=== PATIENT | male | born 1955 ===

== ENCOUNTER 2017-09-18 11:52 | Emergency (ER) | payer MEDICARE ==
[2017-09-18 11:52] VITALS: BMI 34.9
[2017-09-18 12:01] VITALS: TEMP 99.1
--- NOTE | 2017-09-18 13:13 | RAD ---
Left knee three views History: Injury. Comparison: None available. Findings: Mild narrowing of the medial compartment of the femorotibial joint space. No significant suprapatellar joint effusion. No evidence for acute displaced fracture or dislocation. Small ossific density seen posterior to the proximal tibia on the lateral view may represent a small loose osteochondral body. Impression: Mild narrowing of the medial compartment of the femorotibial joint space. No significant suprapatellar joint effusion. No evidence for acute displaced fracture or dislocation. Small ossific density seen posterior to the proximal tibia on the lateral view may represent a small loose osteochondral body.
[2017-09-18 13:30] VITALS: BP 136/83; PULSE 77; RESP 19; O2SAT 95
--- NOTE | 2017-09-18 15:55 | C.PDOC ---
History Of Present Illness 62 year old male, with PMHx of CVA with left sided weakness, presents to ED for evaluation of left knee pain s/p injury today. Pt states he was walking without assistance, lost his balance, and fell on his left knee. Fall was witnessed by family. Family states patient's mentation is at baseline, notes speech has not changed acutely. Denies LOC, headache, or any other complaints at this time. Chief Complaint (Nursing): Lower Extremity Problem/Injury History Per: Patient History/Exam Limitations: no limitations Onset/Duration Of Symptoms: Hrs Current Symptoms Are (Timing): Still Present Recent travel outside of the [place]: No Additional History Per: Family - Knee Description Of Injury: Fell Past Medical History Reviewed: Historical Data, Nursing Documentation, Vital Signs Vital Signs: Last Vital Signs Temp 99.1 F 09/18/17 11:55 Pulse 77 09/18/17 13:30 Resp 19 09/18/17 13:30 BP 136/83 09/18/17 13:30 Pulse Ox 95 09/18/17 16:02 - Medical History PMH: Depression, Hypercholesterolemia, Hypothyroidism, Sleep Apnea (Uses C-PAP HS) Denies: HIV, Chronic Kidney Disease - [facility] Procedures APHASIA TREATMENT USING AUGMENT COMM EQUIPMENT (07/16/15) EXERCISE TREATMENT OF MUSCULOSK WHOLE USING ASSIST EQUIPMENT (07/16/15) GAIT TRAINING/AMBULAT TREATMENT USING ASSIST EQUIPMENT (07/16/15) HOME MANAGEMENT TREATMENT USING ASSIST EQUIPMENT (07/16/15) SPINAL TAP (05/07/98) Family History: States: Unknown Family Hx - Social History Hx Alcohol Use: No Hx Substance Use: No - Immunization History Hx Tetanus Toxoid Vaccination: Yes Hx Influenza Vaccination: Yes Hx Pneumococcal Vaccination: Yes Review Of Systems Except As Marked, All Systems Reviewed And Found Negative. Constitutional: Negative for: Fever, Chills Cardiovascular: Negative for: Chest Pain, Palpitations Respiratory: Negative for: Shortness of Breath Musculoskeletal: Positive for: Leg Pain (left knee) Neurological: Negative for: Headache, Dizziness Physical Exam - Physical Exam Appears: Non-toxic, No Acute Distress Skin: Warm, Dry, Other (left knee abrasion) Head: Atraumatic, Normacephalic Eye(s): bilateral: Normal Inspection Oral Mucosa: Moist Cardiovascular: Rhythm Regular Respiratory: Normal Breath Sounds, No Rales, No Rhonchi, No Wheezing Gastrointestinal/Abdominal: Soft, No Tenderness Extremity: Normal ROM (FROM of left knee), No Tenderness, Capillary Refill ( less than 2 seconds), No Deformity, No Swelling Neurological/Psych: Oriented x3, No Normal Speech (slurred) ED Course And Treatment O2 Sat by Pulse Oximetry: 95 (RA) Pulse Ox Interpretation: Normal Medical Decision Making Medical Decision Making: Left knee x-ray ordered and reviewed. Pt is being discharged home with instructions to follow up with PMD in 1-3 days. Disposition - Disposition Referrals: Arcadio Monreal, [Non-Staff] - Disposition: HOME/ ROUTINE Disposition Time: 13:10 Condition: GOOD Additional Instructions: Thank you for letting us take care of you today. The emergency medical care you received today was directed at your acute symptoms. If you were prescribed any medication, please fill it and take as directed. It may take several days for your symptoms to resolve. Return to the Emergency Department if your symptoms worsen, do not improve, or if you have any other problems. Please contact your doctor or call one of the physicians/clinics you have been referred to that are listed on the Patient Visit Information form that is included in your discharge packet. Bring any paperwork you were given at discharge with you along with any medications you are taking to your follow up visit. Our treatment cannot replace ongoing medical care by a primary care provider (PCP) outside of the emergency department. Thank you for allowing the [facility] team to be part of your care today. Follow up with your primary care doctor in 2-3 days for re-evaluation and further management. Instructions: Contusion (DC) Forms: [employer] Round ([place]) - Clinical Impression Clinical Impression: Knee contusion - Scribe Statement The provider has reviewed the documentation as recorded by the Scribe Mavis Arndt All medical record entries made by the Scribe were at my direction and personally dictated by me. I have reviewed the chart and agree that the record accurately reflects my personal performance of the history, physical exam, medical decision making, and the department course for this patient. I have also personally directed, reviewed, and agree with the discharge instructions and disposition.
== END 2017-09-18 13:39 | disposition home or self-care (01) ==
LOC: C.ER 11:52
DX: S80.02XA Contusion of left knee, initial encounter (principal); X58.XXXA Exposure to other specified factors, initial encounter; Y93.01 Activity, walking, marching and hiking; E03.9 Hypothyroidism, unspecified; E78.00 Pure hypercholesterolemia, unspecified

== ENCOUNTER 2017-11-02 13:17 | Inpatient (IN) | payer MEDICARE ==
[2017-11-02 13:17] VITALS: BMI 34.9
[2017-11-02 13:52] LABS: EOS % 0.5 % (0.0-4.0); HEMOGLOBIN 14.1 g/dL (12.0-18.0); LYMPH # 1.1 K/uL (1.0-4.3); MONO # 0.3 K/uL (0.0-0.8); NEUT # 3.4 K/uL (1.8-7.0); WHITE BLOOD COUNT 4.9 K/uL (4.8-10.8)
--- NOTE | 2017-11-02 13:54 | CT ---
Date of service: 11/02/2017 PROCEDURE: CT HEAD WITHOUT CONTRAST. HISTORY: Code Stroke COMPARISON: 05/17/2016 TECHNIQUE: Axial computed tomography images were obtained through the head/brain without intravenous contrast. Radiation dose: Total exam DLP = 949.00 mGy-cm. This CT exam was performed using one or more of the following dose reduction techniques: Automated exposure control, adjustment of the mA and/or kV according to patient size, and/or use of iterative reconstruction technique. FINDINGS: HEMORRHAGE: No intracranial hemorrhage. BRAIN: No mass effect or edema. No evidence of acute infarct. Old left basal ganglia lacunar infarct. Several old small left thalamic lacunar infarcts are noted. There is severe chronic periventricular and deep/ subcortical white matter lucency consistent with microvascular ischemic change. Please note that there is CSF attenuation within the sella turcica consistent with "Empty sella" syndrome. The pituitary is presumed flattened along the floor of the sella turcica. VENTRICLES: Unremarkable. No hydrocephalus. CALVARIUM: Unremarkable. PARANASAL SINUSES: Unremarkable as visualized. No significant inflammatory changes. MASTOID AIR CELLS: Unremarkable as visualized. No inflammatory changes. OTHER FINDINGS: None. IMPRESSION: No intracranial hemorrhage or evidence of acute infarct. Severe chronic white matter ischemic change. Old basal ganglia/thalamic lacunar infarcts. The findings this examination were communicated by telephone to Dr. Schmidt at 1:50 p.m. on 11/02/2017.
[2017-11-02 13:57] LABS: BASO % 0.4 % (0.0-2.0); LYMPH % 22.2 % (20.0-40.0); MEAN CELL VOLUME 92.4 fL (80.0-94.0); MEAN CORPUSCULAR HEMOGLOBIN 31.8 pg (27.0-31.0); MEAN CORPUSCULAR HGB CONC 34.4 g/dL (33.0-37.0); MEAN PLATELET VOLUME 10.1 fL (7.2-11.7); NEUT % 69.9 % (50.0-75.0); NRBC % 0.1 % (0.0-2.0); RBC 4.45 Mil/uL (4.40-5.90); RED CELL DISTRIBUTION WIDTH 13.8 % (11.5-14.5)
--- NOTE | 2017-11-02 13:59 | C.PDOC ---
History Of Present Illness 62yo male, brought to ER as a code stroke. 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 Per patient's family, he was at baseline when he went to sleep last night and patient states he slept through the night, which is unusual for him as he usually wakes up to use the bathroom. This morning, the family noted the patient had worse than usual slurred speech and worsened left sided weakness; patient was unable to ambulate without assistance. Currently, patient denies any headache, chest pain, shortness of breath, and offers no medical complaints. Due to his prior CVA which was hemorrhagic he has not been on an anticoagulant medications and is given ASA intermittently. PMD: Dr. SANDEEP Griffith Time Seen by Provider: 11/02/17 13:28 Chief Complaint (Nursing): Weakness/Neurological Deficit History Per: Patient, Family History/Exam Limitations: no limitations Fall Associated With With Symptoms: No - Symptoms Of CVA Associated Symptoms: Impaired Speech, Decreased Ability To Walk Character Of Deficits: Left: Weakness Past Medical History Reviewed: Historical Data, Nursing Documentation, Vital Signs Vital Signs: Last Vital Signs Temp 98.5 F 11/02/17 13:27 Pulse 83 11/02/17 14:12 Resp 17 11/02/17 14:12 BP 116/70 11/02/17 14:12 Pulse Ox 98 11/02/17 15:26 - Medical History PMH: Depression, Hypercholesterolemia, Hypothyroidism, Sleep Apnea (Uses C-PAP HS) Denies: HIV, Chronic Kidney Disease Other PMH: CADASIL syndrome - [facility] Procedures APHASIA TREATMENT USING AUGMENT COMM EQUIPMENT (07/16/15) EXERCISE TREATMENT OF MUSCULOSK WHOLE USING ASSIST EQUIPMENT (07/16/15) GAIT TRAINING/AMBULAT TREATMENT USING ASSIST EQUIPMENT (07/16/15) HOME MANAGEMENT TREATMENT USING ASSIST EQUIPMENT (07/16/15) SPINAL TAP (05/07/98) Family History: States: Unknown Family Hx - Social History Hx Alcohol Use: No Hx Substance Use: No - Immunization History Hx Tetanus Toxoid Vaccination: Yes Hx Influenza Vaccination: Yes Hx Pneumococcal Vaccination: Yes Review Of Systems Except As Marked, All Systems Reviewed And Found Negative. Constitutional: Negative for: Fever, Chills Cardiovascular: Negative for: Chest Pain Respiratory: Negative for: Shortness of Breath Gastrointestinal: Negative for: Abdominal Pain Neurological: Positive for: Weakness (left sided). Negative for: Headache, Dizziness Physical Exam - Physical Exam Appears: Non-toxic Skin: Warm, Dry Head: Atraumatic, Normacephalic Eye(s): bilateral: PERRL, Other (disconjugate gaze; lateral gaze normal.) Neck: Normal ROM, Supple, Other (no carotid bruit noted) Chest: Symmetrical Cardiovascular: Rhythm Regular, No Murmur Respiratory: Normal Breath Sounds, No Rales, No Rhonchi, No Wheezing Gastrointestinal/Abdominal: Normal Exam, Soft, No Tenderness Back: Normal Inspection, No CVA Tenderness, No Vertebral Tenderness, No Paraspinal Tenderness Extremity: No Tenderness, No Pedal Edema, No Calf Tenderness, Capillary Refill ( < 2 seconds ), No Deformity, No Swelling Extremity: Left: Other (left limb ataxia) Pulses: Left Dorsalis Pedis: Normal, Right Dorsalis Pedis: Normal Neurological/Psych: Oriented x3, No Normal Speech (+ slurred speech due to prior CVA), Normal Cognition, Normal Sensation ED Course And Treatment - Laboratory Results Result Diagrams: 11/02/17 13:47 11/02/17 13:47 Lab Interpretation: No Acute Changes ECG: Interpreted By Ma ECG Rhythm: Sinus Rhythm, Nonspecific Changes ECG Interpretation: No Acute Changes O2 Sat by Pulse Oximetry: 98 (RA) Pulse Ox Interpretation: Normal - Radiology CXR: Interpreted by Ma CXR Interpretation: Yes: No Acute Disease - CT Scan/US Head Other Rad Studies (CT/US): Read By Radiologist CT/US Interpretation: No evidence of acute infarct or hemorrhage. Progress Note: CODE STROKE called at 1324. Labs, EKG, CT Head w/o contrast ordered. IV Fluids ordered - Physician Consult Information Outcome Of Conversation: Case discussed with Dr Griffith. He requests patient be admitted to the hospitalist. Dr Wooten notified. Case reviewed with Dr Bunn. He does not believe patient should be a candidate for TPA at this time. NIHSS Stroke Scale 2 - Date/Time Evaluation Performed Date Performed: 11/02/17 Time Performed: 13:30 When Was NIHSS Performed: Code Stroke - How Severe is the Stroke Level of Consciousness: 0=Alert LOC to Questions: 0=Both comments correct LOC to commands: 0=Obeys both correctly Best Gaze: 0=Normal Visual: 0=No visual loss Facial: 0=Normal Motor Arm - Left: 0=No drift Motor Arm - Right: 0=No drift Motor Leg - Left: 0=No drift Motor Leg - Right: 0=No drift Limb Ataxia: 1=Present Upper or Lower Sensory: 0=Normal Best Language: 0=No aphasia Dysarthia: 1=Mild to moderate slurring Extinction & Inattention (Neglect): 0=Normal, no object Score: 2 rTPA Inclusion/Exclusion - Refusal of Treatment Patient Refused Treatment: No - Inclusion Criteria for Altepase Patient is 18 years or Older: Yes The Clinical Diagnosis of Ischemic Stroke That is Causing a Potentially Disabling Neurological Deficit: No - Exclusion Criteria for Altepase Uncontrolled Hypertension at Time of Treatment (Systolic BP above 185 or Diastolic BP above 110 mmHg): No History of: Intracranial hemorrhage Active Internal Bleeding: No Known Bleeding Diathesis Including but Not Limited to: Platelets Below 100,000/ mm,PTT Above 40 sec After Heparin Use, Current Use of Oral Anitcoagulant With INR Greater Than 1.7 or PT Greater Than 15 secs: No Evidence of an Intracranial Hemorrhage: No Evidence of Major Acute Infarct With Signs Greater Than 1/3 MCA Territory: No Disposition - Disposition Disposition: HOSPITALIZED Disposition Time: 15:34 Condition: STABLE - POA Present On Arrival: None - Clinical Impression Clinical Impression: CADASIL (cerebral autosomal dominant arteriopathy with subcortical infarcts and leukoencephalopathy), TIA (transient ischemic attack) - Scribe Statement The provider has reviewed the documentation as recorded by the Jaden Quiroga Provider Attestation: All medical record entries made by the Jaden were at my direction and personally dictated by me. I have reviewed the chart and agree that the record accurately reflects my personal performance of the history, physical exam, medical decision making, and the department course for this patient. I have also personally directed, reviewed, and agree with the discharge instructions and disposition.
[2017-11-02 14:00] LABS: INR 1.2; PROTHROMBIN TIME 12.6 SECONDS (9.7-12.2)
[2017-11-02 14:16] LABS: BLOOD UREA NITROGEN 8 mg/dL (9-20); GFR AFRICAN-AMERICAN > 60; GFR NON-AFRICAN AMERICAN > 60
[2017-11-02 14:17] LABS: ALB/GLOB RATIO 1.7 (1.0-2.1); ALBUMIN 4.2 g/dL (3.5-5.0); ALT/SGPT 30 U/L (21-72); AST/SGOT 23 U/L (17-59); HDL CHOLESTEROL 36 mg/dL (30-70)
[2017-11-02] MEDS: Sodium Chloride 0.9% 1,000 ML IV SCH ×2 (14:19→23:45)
[2017-11-02] MEDS ORDERED: Sodium Chloride 0.9% 1,000 ML ONE (14:21)
[2017-11-02 14:28] LABS: LDL CHOLESTEROL 106 mg/dL (0-129)
--- NOTE | 2017-11-02 14:30 | RAD ---
Date of service: 11/02/2017 HISTORY: Code Stroke COMPARISON: Comparison chest dated the 06/21/2016. . FINDINGS: LUNGS: Minor bibasilar atelectasis PLEURA: No significant pleural effusion identified, no pneumothorax apparent. CARDIOVASCULAR: Heart size upper limits of normal OSSEOUS STRUCTURES: No significant abnormalities. VISUALIZED UPPER ABDOMEN: Normal. OTHER FINDINGS: None. IMPRESSION: Minor bibasilar atelectasis
--- NOTE | 2017-11-02 14:53 | CP.PCM.HP ---
<Rob Rosado - Last Filed: 11/02/17 23:25> History of Present Illness - History of Present Illness History of Present Illness: PGY-1 H&P for Dr. Aria Hawthorne CC: "slurred speech and left side weakness" 62 year old male with past medical history of multiple strokes (CADASIL Syndrome ), dyslipidemia, and hypothyroidism, presents with slurred speech and left side weakness. Patient woke up this morning at 7:30 and noticed his own difficulty speaking, and he told his that he thought he was having a stroke. Patient' s reports that patient did not get up in the middle of the night to urinate , as he usually does. She also noticed that he had inversion of his left foot and that he had gait changes. Patient already had some left sided weakness, gait abnormalities, diplopia, and dysarthria prior to this event. Patient admits cough and weakness. He denies chest pain, difficulty breathing, headache , abdominal pain, nausea/vomiting, diarrhea/constipation, dysurea, changes in vision/hearing, bleeding, rash, leg/back pain. PMD: Dr SANDEEP Griffith, Neuro: Dr Bunn ALL: IV contrast PMhx: CADASIL syndrome, multiple episodes of strokes, Hyperlipidemia, hypothyroidism Shx: none Famhx: brother(stroke), mother (emphysema) SochHx: patient smoked 1 pack a day for about 40 years, quitted in 1997. Patient consumed alcohol for approx 40 years, and stopped 7 years ago. Patient denies illicit drug use. 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 Patient lives with and daughter. Meds: Crestor 20mg po HS , Synthroid 75mcg PO daily Review of Systems - Constitutional Constitutional: Fatigue. absent: Daytime Sleepiness, Fever, Headache, Increased Appetite, Night Sweats - EENT Eyes: absent: Change in Vision, Loss of Vision Ears: absent: Decreased Hearing - Cardiovascular Cardiovascular: absent: Chest Pain, Edema, Leg Edema, Lightheadedness - Respiratory Respiratory: Cough. absent: Dyspnea on Exertion, Wheezing - Gastrointestinal Gastrointestinal: absent: Abdominal Pain, Constipation, Diarrhea, Nausea, Vomiting - Genitourinary Genitourinary: absent: Dysuria - Musculoskeletal Musculoskeletal: Muscle Weakness. absent: Back Pain - Integumentary Integumentary: absent: Bleeding Lesions, Swelling - Neurological Neurological: Abnormal Gait, Abnormal Speech, Weakness. absent: Dizziness, Headaches, Loss of Vision - Psychiatric Psychiatric: Confusion. absent: Anxiety - Hematologic/Lymphatic Hematologic: absent: Easy Bleeding Past Patient History - Infectious Disease Hx of Infectious Diseases: None - Past Medical History & Family History Past Medical History?: Yes - Past Social History Smoking Status: Former Smoker Chewing Tobacco Use: No Cigar Use: No Alcohol: None Drugs: Denies Home Situation {Lives}: With Family - CARDIAC Hx Hypercholesterolemia: Yes - PULMONARY Hx Sleep Apnea: Yes (Uses C-PAP HS) - NEUROLOGICAL HX Cerebrovascular Accident: Yes (left sided weakness) Other/Comment: CADASIL SYNDROME - HEENT Hx HEENT Problems: Yes Other/Comment: left eye double vision late 1997 - RENAL Hx Chronic Kidney Disease: No - ENDOCRINE/METABOLIC Hx Hypothyroidism: Yes - HEMATOLOGICAL/ONCOLOGICAL Hx Human Immunodeficiency Virus (HIV): No - INTEGUMENTARY Hx Dermatological Problems: No - MUSCULOSKELETAL/RHEUMATOLOGICAL Hx Musculoskeletal Disorders: Yes Hx Falls: Yes Hx Unsteady Gait: Yes - GASTROINTESTINAL Hx Gastrointestinal Disorders: Yes Hx Ulcer: Yes - GENITOURINARY/GYNECOLOGICAL Hx Genitourinary Disorders: No - PSYCHIATRIC Hx Depression: Yes Hx Substance Use: No - SURGICAL HISTORY Hx Musculoskeletal Surgery: Yes ([employer].) - ANESTHESIA Hx Anesthesia: Yes Hx Anesthesia Reactions: No Hx Malignant Hyperthermia: No Meds Allergies/Adverse Reactions: Allergies Allergy/AdvReac Type Severity Reaction Status Date / Time No Known Allergies Allergy Verified 11/02/17 13:31 Physical Exam - Constitutional Appears: Non-toxic, No Acute Distress - Head Exam Head Exam: ATRAUMATIC, NORMAL INSPECTION, NORMOCEPHALIC - Eye Exam Eye Exam: EOMI, Normal appearance, PERRL. absent: Scleral icterus Pupil Exam: NORMAL ACCOMODATION - ENT Exam ENT Exam: Mucous Membranes Moist, Normal Exam, Normal Oropharynx - Neck Exam Neck exam: Positive for: Full Rom, Normal Inspection - Respiratory Exam Respiratory Exam: Clear to Auscultation Bilateral, NORMAL BREATHING PATTERN. absent: Rales, Rhonchi, Wheezes - Cardiovascular Exam Cardiovascular Exam: REGULAR RHYTHM, +S1, +S2. absent: Clicks, Gallop, Rubs - GI/Abdominal Exam GI & Abdominal Exam: Normal Bowel Sounds. absent: Distended, Firm, Guarding, Rebound - Neurological Exam Neurological exam: Alert - Expanded Neurological Exam Expanded Speech: Slurred Speech Cranial nerves: EOM's Intact: Normal, Facial Sensation: Normal, Tongue Deviation : Normal Cerebellar Function: Finger to Nose: Normal Upper motor neuron: Babinski Sign: Normal Sensory exam: Lower Extremity 2 Point Discrimination: Normal, Lower Extremity Light Touch: Normal, Upper Extremity 2 Point Discrimination: Normal, Upper Extremity Light Touch: Normal Neuro motor strength exam: Left Upper Extremity: 3, Right Upper Extremity: 5, Left Lower Extremity: 3, Right Lower Extremity: 5 DTR: Patellar Left: 2+, Patellar Right: 2+ Results - Vital Signs Recent Vital Signs: Last Vital Signs Temp 98.5 F 11/02/17 13:27 Pulse 83 11/02/17 14:12 Resp 17 11/02/17 14:12 BP 116/70 11/02/17 14:12 Pulse Ox 98 11/02/17 14:20 - Labs Result Diagrams: 11/02/17 13:47 11/02/17 13:47 Labs: Laboratory Results - last 24 hr 11/02/17 11/02/17 11/02/17 13:47 13:47 13:47 WBC 4.9 RBC 4.45 Hgb 14.1 Hct 41.1 MCV 92.4 MCH 31.8 H MCHC 34.4 RDW 13.8 Plt Count 112 L MPV 10.1 Neut % (Auto) 69.9 Lymph % (Auto) 22.2 [place] % (Auto) 7.0 Eos % (Auto) 0.5 Baso % (Auto) 0.4 Neut # (Auto) 3.4 Lymph # (Auto) 1.1 [place] # (Auto) 0.3 Eos # (Auto) 0.0 Baso # (Auto) 0.0 Differential Comment PT 12.6 H INR 1.2 APTT 29 Sodium 146 Potassium 3.6 Chloride 105 Carbon Dioxide 31 H Anion Gap 13 BUN 8 L Creatinine 0.9 Est GFR ( Amer) > 60 Est GFR (Non-Af Amer) > 60 Random Glucose 102 Hemoglobin A1c Calcium 9.0 Total Bilirubin 0.9 AST 23 ALT 30 Alkaline Phosphatase 57 Troponin I < 0.0120 Total Protein 6.7 Albumin 4.2 Globulin 2.5 Albumin/Globulin Ratio 1.7 Triglycerides 136 Cholesterol 164 LDL Cholesterol Direct 106 HDL Cholesterol 36 11/02/17 13:47 WBC RBC Hgb Hct MCV MCH MCHC RDW Plt Count MPV Neut % (Auto) Lymph % (Auto) [place] % (Auto) Eos % (Auto) Baso % (Auto) Neut # (Auto) Lymph # (Auto) [place] # (Auto) Eos # (Auto) Baso # (Auto) Differential Comment PT INR APTT Sodium Potassium Chloride Carbon Dioxide Anion Gap BUN Creatinine Est GFR ( Amer) Est GFR (Non-Af Amer) Random Glucose Hemoglobin A1c 4.7 Calcium Total Bilirubin AST ALT Alkaline Phosphatase Troponin I Total Protein Albumin Globulin Albumin/Globulin Ratio Triglycerides Cholesterol LDL Cholesterol Direct HDL Cholesterol Assessment & Plan - Assessment and Plan (Free Text) Plan: Slurred Speech - Hx of CADASIL syndrome -CT head 11/02 - no intracranial hemorrhage or evidence of acute infarct. severe chrinic white matter ischemic changes, old basal ganglia/thalamic lacunar infarct. -11/02 chest Xray: Minor bibasilar atelectasis -F/U MRI w/o contrast - 11/02 LD x2 negative, follow ROMIx1 -11/02 EKG: Normal sinus rhythm, nonspecific T wave abnormalities - Patient has adverse reaction to IV contrast related to liver function - Neuro consult - Dr Bunn, help is appreciated - Contraindication --> Aspirin/plavix (anticoagulants and thrombolytics) due to increase risk of stroke and brain bleeds -Continue Statin treatment (Crestor) -F/U HbA1C, TSH and ROMIx3 - PT/OT evaluation - Failed Swallow test. Consider speech therapy consult. - F/U CBC, BMP, Mg and Phosp labs Hypothyroidism - F/U TSH - restart home meds: Synthroid 75mcg PO daily Lipid disease - F/U lipid panel - restart crestor 20mg PO HS Prophylactic -NO DVT prophylaxis due to increase risk of bleeding (hx of CADASIL syndrome) - Tele/observation - PT/OT eval - F/U eval and recs - Neurochecks Q4 Plan was discussed with Dr. Aria Rosado, PGY-1 - Date & Time Date: 11/02/17 Time: 23:43 <Aria Hawthorne V - Last Filed: 11/03/17 09:44> Present on Admission - Present on Admission Any Indicators Present on Admission: No History of DVT/PE: No History of Uncontrolled Diabetes: No Urinary Catheter: No Decubitus Ulcer Present: No Results - Vital Signs Recent Vital Signs: Last Vital Signs Temp 98.5 F 11/02/17 13:27 Pulse 69 11/02/17 16:23 Resp 12 11/02/17 16:23 BP 132/78 11/02/17 16:23 Pulse Ox 97 11/02/17 16:23 - Labs Result Diagrams: 11/03/17 07:47 11/03/17 07:47 Labs: Laboratory Results - last 24 hr 11/02/17 11/02/17 11/02/17 13:47 13:47 13:47 WBC 4.9 RBC 4.45 Hgb 14.1 Hct 41.1 MCV 92.4 MCH 31.8 H MCHC 34.4 RDW 13.8 Plt Count 112 L MPV 10.1 Neut % (Auto) 69.9 Lymph % (Auto) 22.2 [place] % (Auto) 7.0 Eos % (Auto) 0.5 Baso % (Auto) 0.4 Neut # (Auto) 3.4 Lymph # (Auto) 1.1 [place] # (Auto) 0.3 Eos # (Auto) 0.0 Baso # (Auto) 0.0 Differential Comment PT 12.6 H INR 1.2 APTT 29 Sodium 146 Potassium 3.6 Chloride 105 Carbon Dioxide 31 H Anion Gap 13 BUN 8 L Creatinine 0.9 Est GFR ( Amer) > 60 Est GFR (Non-Af Amer) > 60 Random Glucose 102 Hemoglobin A1c Calcium 9.0 Total Bilirubin 0.9 AST 23 ALT 30 Alkaline Phosphatase 57 Troponin I < 0.0120 Total Protein 6.7 Albumin 4.2 Globulin 2.5 Albumin/Globulin Ratio 1.7 Triglycerides 136 Cholesterol 164 LDL Cholesterol Direct 106 HDL Cholesterol 36 Urine Color Urine Clarity Urine pH Ur Specific [place] Urine Protein Urine Glucose (UA) Urine Ketones Urine Blood Urine Nitrate Urine Bilirubin Urine Urobilinogen Ur Leukocyte Esterase Urine WBC (Auto) Urine RBC (Auto) Urine Bacteria Blood Type Antibody Screen 11/02/17 11/02/17 11/02/17 13:47 13:55 16:19 WBC RBC Hgb Hct MCV MCH MCHC RDW Plt Count MPV Neut % (Auto) Lymph % (Auto) [place] % (Auto) Eos % (Auto) Baso % (Auto) Neut # (Auto) Lymph # (Auto) [place] # (Auto) Eos # (Auto) Baso # (Auto) Differential Comment PT INR APTT Sodium Potassium Chloride Carbon Dioxide Anion Gap BUN Creatinine Est GFR ( Amer) Est GFR (Non-Af Amer) Random Glucose Hemoglobin A1c 4.7 Calcium Total Bilirubin AST ALT Alkaline Phosphatase Troponin I Total Protein Albumin Globulin Albumin/Globulin Ratio Triglycerides Cholesterol LDL Cholesterol Direct HDL Cholesterol Urine Color Yellow Urine Clarity Clear Urine pH 7.0 Ur Specific [place] 1.011 Urine Protein Negative Urine Glucose (UA) Normal Urine Ketones Negative Urine Blood Negative Urine Nitrate Negative Urine Bilirubin Negative Urine Urobilinogen Normal Ur Leukocyte Esterase Neg Urine WBC (Auto) < 1 Urine RBC (Auto) < 1 Urine Bacteria Rare Blood Type O POSITIVE Antibody Screen Negative Assessment & Plan (1) 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 Priority: Medium (2) History of blurry vision Status: Acute (3) Slurred speech Status: Acute (4) Hyperlipidemia Status: Acute (5) Hypothyroid Status: Chronic Priority: Medium (6) Prophylactic measure Status: Acute NIHSS Stroke Scale - Date/Time Evaluation Performed Date Performed: 11/02/17 Time Performed: 13:30 When Was NIHSS Performed: Baseline - How Severe is the Stoke Level of Consciousness: 0=Alert LOC to Questions: 0=Both comments correct LOC to commands: 0=Obeys both correctly Best Gaze: 0=Normal Visual: 0=No visual loss Facial: 0=Normal Motor Arm - Left: 0=No drift Motor Arm - Right: 0=No drift Motor Leg - Left: 0=No drift Motor Leg - Right: 0=No drift Limb Ataxia: 1=Present Upper or Lower Sensory: 0=Normal Best Language: 0=No aphasia Dysarthia: 1=Mild to moderate slurring Extinction & Inattention (Neglect): 0=Normal, no object Score: 2 Severity Of Stroke: 1-4= Minor Stroke Attending/Attestation - Attestation I have personally seen and examined this patient.: Yes I have fully participated in the care of the patient.: Yes I have reviewed all pertinent clinical information: Yes Notes (Text): This is late computer entry for 11/02/17. Patient seen, examined and case discussed with medical services assistant. Patient seen with at bedside. 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 Per NIH, there is no cure to this syndrome and it is not recommended to be on any anti-platelets, anti-thrombolytic therapy given the high risk of microbleeds. Patient has been off anti-platelets and aspirin since his prior stroke in 2016. Patient came to the hospital today following slurring speech noted by himself and his . patient failed swallow eval. Patient started IV fluids. Patient has a known history of hypothyroidism and hyperlipidemia. First troponin is negative. Patient is seen by neurology outpatient but is away on vacation. Case discussed with Dr. Bunn, recommended for Pletal 100mg PO BID. We have restarted his home medications once patient passes swallow eval. I have discussed with [facility] radiologist at the end of shift who noting acute- subacute right parietal stroke in light of his genetic autosomal dominant stroke syndrome. Assessment/plan 1) Slurry Speech History of Cadasil Syndrome History of Multiple Strokes Assessment/Plan * obs/telemetry * Neurology (Dr. Bunn) on board help appreciated * Per NIH, this is the most common inheritable type of stroke due to autosominal dominant genetic predispostion. patient has had workup in the past to confirm. There is no cure to this syndrome and it is not recommended to be on any anti-platelets, anti-thrombolytic therapy given the high risk of microbleeds. * Hgba1c: 4.7 * Lipid Panel: T, Cholestrol: 164, LDL: 106, HDL: 36 * LD X3:negative * Failed nursing bedside swallow. * Start accuechecks Q6H * Hypoglycemic protocol * pending Swallow eval * Official swallow eval. Patient to be assessed by them in the morning * Crestor 20mg POqHS * NS 100cc/hr * CT Head (11/02/17): no intracranial hemorrhage or evidence of acute infarct. Severe chronic white matter ischemic change. Old basal ganglia/thalamic lacunar infarcts. * F/u official brain MRI report 2. Hypothyroidism Assessment/Plan * When patient passes swallow eval: * Resume home medication: Synthroid 75mcg PO daily 3. Hyperlipidemia Assessment/Plan * When patient passes swallow eval: * Resume home medication: Crestor 20mg POqHS 4. Prophylactic measure * No chemical anticoagulation--->patient has Cadasil syndrome which has a high risk of microbleeds and prior history of hemorrhagic stroke in 2016 * PT/OT eval * Swallow eval * IV fluids * Hypoglycemic protocol
[2017-11-02 16:40] LABS: URINE BACTERIA RARE (<OCC); URINE BILIRUBIN NEGATIVE (NEGATIVE); URINE BLOOD NEGATIVE (NEGATIVE); URINE CLARITY Clear (Clear); URINE COLOR Yellow (YELLOW); URINE GLUCOSE (UA) NORMAL (Normal); URINE LEUKOCYTE ESTERASE NEG Leu/uL (Negative); URINE PROTEIN NEGATIVE (NEGATIVE); URINE UROBILINOGEN NORMAL mg/dL (0.2-1.0)
[2017-11-02] MEDS ORDERED: Glucagon Recombinant 1 mg Inj IM PRN (18:10)
[2017-11-02] MEDS ORDERED: Dextrose 50% SYRINGE Inj (50 ml) IV PRN (18:10)
[2017-11-02 18:40] LABS: CK-MB 0.73 ng/mL (0.0-3.38)
--- NOTE | 2017-11-02 18:43 | CP.PCM.CON ---
History of Present Illness - History of Present Illness History of Present Illness: Neurology Consultation Note: Mr. Joseph is a 62-year-old man with a past medical history of CADASIL syndrome resulting in multiple subcortical strokes as well as a previous hemorrhagic stroke. He is left with residual gait disturbance, left sided weakness, slurred speech and dyplopia. He was last at his baseline last night and this morning, he was noted by his family to have worsened left side weakness and dysarthria. He is not on antiplatelet agents due to previous hemorrhagic stroke. When I saw the patient, he continued to have dysarthria and some left side weakness with neglect. MRI of the brain showed an acute to subacute right parietal lobe infarct. NIHSS was 8. Past Patient History - Infectious Disease Hx of Infectious Diseases: None - Past Medical History & Family History Past Medical History?: Yes - Past Social History Smoking Status: Never Smoked - CARDIAC Hx Hypercholesterolemia: Yes - PULMONARY Hx Sleep Apnea: Yes (Uses C-PAP HS) - NEUROLOGICAL HX Cerebrovascular Accident: Yes (left sided weakness) Other/Comment: CADASIL SYNDROME - HEENT Hx HEENT Problems: Yes Other/Comment: left eye double vision late 1997 - RENAL Hx Chronic Kidney Disease: No - ENDOCRINE/METABOLIC Hx Hypothyroidism: Yes - HEMATOLOGICAL/ONCOLOGICAL Hx Human Immunodeficiency Virus (HIV): No - INTEGUMENTARY Hx Dermatological Problems: No - MUSCULOSKELETAL/RHEUMATOLOGICAL Hx Musculoskeletal Disorders: Yes Hx Falls: Yes Hx Unsteady Gait: Yes - GASTROINTESTINAL Hx Gastrointestinal Disorders: Yes Hx Ulcer: Yes - GENITOURINARY/GYNECOLOGICAL Hx Genitourinary Disorders: No - PSYCHIATRIC Hx Depression: Yes Hx Substance Use: No - SURGICAL HISTORY Hx Musculoskeletal Surgery: Yes ([employer].) - ANESTHESIA Hx Anesthesia: Yes Hx Anesthesia Reactions: No Hx Malignant Hyperthermia: No Meds Allergies/Adverse Reactions: Allergies Allergy/AdvReac Type Severity Reaction Status Date / Time No Known Allergies Allergy Verified 11/02/17 13:31 - Medications Medications: Current Medications Cilostazol (Pletal) 100 mg PO BID TAVO Dextrose (Dextrose 50% Inj) 0 ml IV STAT PRN; Protocol PRN Reason: Hypoglycemia Protocol Dextrose (Glutose 15) 0 gm PO ONCE PRN; Protocol PRN Reason: Hypoglycemia Protocol Glucagon (Glucagen Diagnostic Kit) 0 mg IM STAT PRN; Protocol PRN Reason: Hypoglycemia Protocol Sodium Chloride (Sodium Chloride 0.9%) 1,000 mls @ 100 mls/hr IV .Q10H [facility] Last Admin: 11/02/17 14:19 Dose: 100 mls/hr Dextrose (Dextrose 5% In Water 1000 Ml) 1,000 mls @ 0 mls/hr IV .Q0M PRN; Protocol; Per Protocol PRN Reason: Hypoglycemia Protocol Levothyroxine Sodium (Synthroid) 75 mcg PO DAILY@0630 [facility] Rosuvastatin Calcium (Crestor) 20 mg PO HS [facility] Physical Exam - Neurological Exam Neurological exam: Abnormal Gait, Alert Additional comments: Alert, awake, oriented to person/place/time. Medial rectus palsy on the right with diplopia. Dysarthria and slight aphasia with cognitive impairment, left side weakness with 4/5 strength and decreased coordination. Left side neglect noted. NIHSS was 8 for dyarthria, left side weakness, left side sensory deficits and slight aphasia. - Psychiatric Exam Psychiatric exam: Normal Affect, Normal Mood Results - Vital Signs Recent Vital Signs: Last Vital Signs Temp 98.5 F 11/02/17 13:27 Pulse 73 11/02/17 17:56 Resp 15 11/02/17 17:56 BP 132/86 11/02/17 17:56 Pulse Ox 97 11/02/17 17:56 - Labs Result Diagrams: 11/02/17 13:47 11/02/17 13:47 Labs: Laboratory Results - last 24 hr 11/02/17 11/02/17 11/02/17 13:47 13:47 13:47 WBC 4.9 RBC 4.45 Hgb 14.1 Hct 41.1 MCV 92.4 MCH 31.8 H MCHC 34.4 RDW 13.8 Plt Count 112 L MPV 10.1 Neut % (Auto) 69.9 Lymph % (Auto) 22.2 [place] % (Auto) 7.0 Eos % (Auto) 0.5 Baso % (Auto) 0.4 Neut # (Auto) 3.4 Lymph # (Auto) 1.1 [place] # (Auto) 0.3 Eos # (Auto) 0.0 Baso # (Auto) 0.0 Differential Comment PT 12.6 H INR 1.2 APTT 29 Sodium 146 Potassium 3.6 Chloride 105 Carbon Dioxide 31 H Anion Gap 13 BUN 8 L Creatinine 0.9 Est GFR ( Amer) > 60 Est GFR (Non-Af Amer) > 60 Random Glucose 102 Hemoglobin A1c Calcium 9.0 Total Bilirubin 0.9 AST 23 ALT 30 Alkaline Phosphatase 57 Total Creatine Kinase CK-MB (Mass) Troponin I < 0.0120 Total Protein 6.7 Albumin 4.2 Globulin 2.5 Albumin/Globulin Ratio 1.7 Triglycerides 136 Cholesterol 164 LDL Cholesterol Direct 106 HDL Cholesterol 36 Urine Color Urine Clarity Urine pH Ur Specific [place] Urine Protein Urine Glucose (UA) Urine Ketones Urine Blood Urine Nitrate Urine Bilirubin Urine Urobilinogen Ur Leukocyte Esterase Urine WBC (Auto) Urine RBC (Auto) Urine Bacteria Blood Type Antibody Screen 11/02/17 11/02/17 11/02/17 13:47 13:55 16:19 WBC RBC Hgb Hct MCV MCH MCHC RDW Plt Count MPV Neut % (Auto) Lymph % (Auto) [place] % (Auto) Eos % (Auto) Baso % (Auto) Neut # (Auto) Lymph # (Auto) [place] # (Auto) Eos # (Auto) Baso # (Auto) Differential Comment PT INR APTT Sodium Potassium Chloride Carbon Dioxide Anion Gap BUN Creatinine Est GFR ( Amer) Est GFR (Non-Af Amer) Random Glucose Hemoglobin A1c 4.7 Calcium Total Bilirubin AST ALT Alkaline Phosphatase Total Creatine Kinase CK-MB (Mass) Troponin I Total Protein Albumin Globulin Albumin/Globulin Ratio Triglycerides Cholesterol LDL Cholesterol Direct HDL Cholesterol Urine Color Yellow Urine Clarity Clear Urine pH 7.0 Ur Specific [place] 1.011 Urine Protein Negative Urine Glucose (UA) Normal Urine Ketones Negative Urine Blood Negative Urine Nitrate Negative Urine Bilirubin Negative Urine Urobilinogen Normal Ur Leukocyte Esterase Neg Urine WBC (Auto) < 1 Urine RBC (Auto) < 1 Urine Bacteria Rare Blood Type O POSITIVE Antibody Screen Negative 11/02/17 18:11 WBC RBC Hgb Hct MCV MCH MCHC RDW Plt Count MPV Neut % (Auto) Lymph % (Auto) [place] % (Auto) Eos % (Auto) Baso % (Auto) Neut # (Auto) Lymph # (Auto) [place] # (Auto) Eos # (Auto) Baso # (Auto) Differential Comment PT INR APTT Sodium Potassium Chloride Carbon Dioxide Anion Gap BUN Creatinine Est GFR ( Amer) Est GFR (Non-Af Amer) Random Glucose Hemoglobin A1c Calcium Total Bilirubin AST ALT Alkaline Phosphatase Total Creatine Kinase 84 CK-MB (Mass) 0.73 Troponin I < 0.0120 Total Protein Albumin Globulin Albumin/Globulin Ratio Triglycerides Cholesterol LDL Cholesterol Direct HDL Cholesterol Urine Color Urine Clarity Urine pH Ur Specific [place] Urine Protein Urine Glucose (UA) Urine Ketones Urine Blood Urine Nitrate Urine Bilirubin Urine Urobilinogen Ur Leukocyte Esterase Urine WBC (Auto) Urine RBC (Auto) Urine Bacteria Blood Type Antibody Screen Assessment & Plan - Assessment and Plan (Free Text) Assessment: Ischemic stroke likely due to underlying CADASIL. Plan: The patient has a history of hemorrhagic stroke, ischemic stroke and CADASIL. Conventional antiplatelet agents may be detrimental. I recommend starting Cilostazol at 100 mg BID. Continue permissive hypertension (only treat BP higher than 220/110 mm Hg for the next 24 hours). We will continue fluids with NS at 100 mL/hr. PT/OT eval and treatment is recommended. Neurology will follow. Thank you.
--- NOTE | 2017-11-02 19:08 | MRI ---
Date of service: 11/02/2017 PROCEDURE: MRI BRAIN WITHOUT CONTRAST HISTORY: Stroke,, history of CADASIL syndrome ; slurring speech COMPARISON: Comparison made with prior CT scan and at MRI of the brain dated 11/02/2017 and 07/14/2015 respectively. TECHNIQUE: Multiplanar, multisequence MR images of the brain were obtained without intravenous contrast enhancement. FINDINGS: HEMORRHAGE: No acute parenchymal, subarachnoid or extra-axial hemorrhage. There are multiple tiny focal areas of very dark T2 signal scattered about both cerebral hemispheres as well as brainstem and cerebellum consistent with hemosiderin deposits secondary to chronic hemorrhage. Findings could represent sequela hemorrhagic conversion of ischemic changes, amyloid angiography however the possibility of familial multiple cavernous malformation syndrome not excluded. DWI: There is a small acute/subacute infarct in the left posterior frontoparietal subcortical white matter. In addition, there are numerous BRAIN PARENCHYMA: Extensive diffuse and confluent chronic white matter ischemic changes seen extending peripherally into the deep and subcortical white matter both cerebral hemispheres. Involvement of the temporal lobes. Multiple more discrete chronic appearing infarcts also seen within both basal ganglia, brainstem and both cerebellar hemispheres. Findings are consistent with chronic sequela of small vessel disease. Findings could conceivably represent sequela of CADASIL with involvement of the medial temporal lobes. . Moderate to significant generalized volume loss. VENTRICLES: No obstructive hydrocephalus. CRANIUM: No acute calvarial abnormality so far as can be seen ORBITS: Orbits and contents grossly unremarkable. PARANASAL SINUSES/MASTOIDS: Clear VASCULAR SYSTEM: Visualized major vascular flow voids at skull base patent. OTHER FINDINGS: None. IMPRESSION: There is a small acute/ subacute infarct in the right posterior frontoparietal white matter. Note that these findings were discussed with the emergency room nurse practitioner Silvia at approximately 6 50 p.m. with written down and read back verification. Extensive diffuse and confluent chronic white matter ischemic changes seen extending peripherally into the deep and subcortical white matter both cerebral hemispheres. Involvement of the temporal lobes. Multiple more discrete chronic appearing infarcts also seen within both basal ganglia, brainstem and both cerebellar hemispheres. Findings are consistent with chronic sequela of small vessel disease. Findings could conceivably represent sequela of CADASIL with involvement of the medial temporal lobes. . Moderate to significant generalized volume loss. Numerous tiny focal areas of very dark T2 signal scattered about both cerebral hemispheres as well as brainstem and cerebellum consistent with hemosiderin deposits secondary to chronic hemorrhage. Findings could represent sequela hemorrhagic conversion of ischemic changes, amyloid angiography however the possibility of familial multiple cavernous malformation syndrome not excluded.
[2017-11-02 20:26] VITALS: RESP 20
[2017-11-03 01:44] LABS: CK-MB 0.75 ng/mL (0.0-3.38)
[2017-11-03 05:29] VITALS: O2SAT 95
[2017-11-03] MEDS: Levothyroxine 75 MCG TAB PO SCH (05:39)
--- NOTE | 2017-11-03 07:31 | CP.PCM.PN ---
Subjective - Date & Time of Evaluation Date of Evaluation: 11/03/17 Objective - Vital Signs/Intake and Output Vital Signs (last 24 hours): Temp Pulse Resp BP Pulse Ox 98 F 62 20 129/76 95 11/03/17 04:35 11/03/17 04:35 11/03/17 04:35 11/03/17 04:35 11/03/17 04:35 Intake and Output: 11/03/17 11/03/17 06:59 18:59 Output Total 150 Balance -150 - Medications Medications: Current Medications Cilostazol (Pletal) 100 mg PO BID [facility] Dextrose (Dextrose 50% Inj) 0 ml IV STAT PRN; Protocol PRN Reason: Hypoglycemia Protocol Dextrose (Glutose 15) 0 gm PO ONCE PRN; Protocol PRN Reason: Hypoglycemia Protocol Glucagon (Glucagen Diagnostic Kit) 0 mg IM STAT PRN; Protocol PRN Reason: Hypoglycemia Protocol Sodium Chloride (Sodium Chloride 0.9%) 1,000 mls @ 100 mls/hr IV .Q10H [facility] Last Admin: 11/02/17 23:45 Dose: Not Given Dextrose (Dextrose 5% In Water 1000 Ml) 1,000 mls @ 0 mls/hr IV .Q0M PRN; Protocol; Per Protocol PRN Reason: Hypoglycemia Protocol Levothyroxine Sodium (Synthroid) 75 mcg PO DAILY@0630 [facility] Last Admin: 11/03/17 05:39 Dose: Not Given Rosuvastatin Calcium (Crestor) 20 mg PO HS [facility] Last Admin: 11/02/17 21:14 Dose: Not Given - Labs Labs: 11/02/17 13:47 11/02/17 13:47 PT 12.6 SECONDS (9.7-12.2) H 11/02/17 13:47 INR 1.2 11/02/17 13:47 APTT 29 SECONDS (21-34) 11/02/17 13:47
[2017-11-03 08:01] LABS: BASO % 0.6 % (0.0-2.0); EOS # 0.1 K/uL (0.0-0.7); HEMOGLOBIN 14.3 g/dL (12.0-18.0); LYMPH # 1.5 K/uL (1.0-4.3); LYMPH % 27.2 % (20.0-40.0); MEAN CELL VOLUME 92.9 fL (80.0-94.0); MEAN CORPUSCULAR HEMOGLOBIN 31.8 pg (27.0-31.0); MEAN CORPUSCULAR HGB CONC 34.3 g/dL (33.0-37.0); MEAN PLATELET VOLUME 10.3 fL (7.2-11.7); MONO # 0.4 K/uL (0.0-0.8); MONO % 6.8 % (0.0-10.0); NEUT # 3.7 K/uL (1.8-7.0); NEUT % 64.4 % (50.0-75.0); NRBC % 0.1 % (0.0-2.0); RBC 4.47 Mil/uL (4.40-5.90); RED CELL DISTRIBUTION WIDTH 13.5 % (11.5-14.5); WHITE BLOOD COUNT 5.7 K/uL (4.8-10.8)
[2017-11-03 08:12] LABS: ALB/GLOB RATIO 1.8 (1.0-2.1); ALBUMIN 4.3 g/dL (3.5-5.0); ALT/SGPT 32 U/L (21-72); AST/SGOT 32 U/L (17-59); BLOOD UREA NITROGEN 7 mg/dL (9-20); CALCIUM 8.7 mg/dl (8.6-10.4); GFR AFRICAN-AMERICAN > 60; GFR NON-AFRICAN AMERICAN > 60
[2017-11-03] MEDS: Cilostazol 100 mg Tab UD PO SCH ×2 (10:12→17:23)
[2017-11-03] MEDS: Sodium Chloride 0.9% 1,000 ML IV SCH (10:41)
--- NOTE | 2017-11-03 10:57 | CP.PCM.PN ---
Subjective - Date & Time of Evaluation Date of Evaluation: 11/03/17 Time of Evaluation: 07:55 - Subjective Subjective: Neurology progress note ( Dr. Bunn's service) Patient was seen and examined at bedside. Patient was resting in bed. Patient is AAOx3. Patient is with right eye diplopia, severe slurred speech/dysarthria. Patient has had history of approximately 8 episodes of CVA as per daughter at bedside. Patient is with left-sided weakness. Patient follows simple command. Objective - Vital Signs/Intake and Output Vital Signs (last 24 hours): Temp Pulse Resp BP Pulse Ox 98.1 F 55 L 20 138/82 95 11/03/17 07:30 11/03/17 07:30 11/03/17 07:30 11/03/17 07:30 11/03/17 07:30 Intake and Output: 11/03/17 11/03/17 06:59 18:59 Output Total 150 Balance -150 - Medications Medications: Current Medications Cilostazol (Pletal) 100 mg PO BID COUNTS INCLUDE 234 BEDS AT THE [facility] Last Admin: 11/03/17 10:12 Dose: 100 mg Dextrose (Dextrose 50% Inj) 0 ml IV STAT PRN; Protocol PRN Reason: Hypoglycemia Protocol Dextrose (Glutose 15) 0 gm PO ONCE PRN; Protocol PRN Reason: Hypoglycemia Protocol Glucagon (Glucagen Diagnostic Kit) 0 mg IM STAT PRN; Protocol PRN Reason: Hypoglycemia Protocol Sodium Chloride (Sodium Chloride 0.9%) 1,000 mls @ 100 mls/hr IV .Q10H COUNTS INCLUDE 234 BEDS AT THE [facility] Last Admin: 11/03/17 10:41 Dose: Not Given Dextrose (Dextrose 5% In Water 1000 Ml) 1,000 mls @ 0 mls/hr IV .Q0M PRN; Protocol; Per Protocol PRN Reason: Hypoglycemia Protocol Levothyroxine Sodium (Synthroid) 75 mcg PO DAILY@0630 COUNTS INCLUDE 234 BEDS AT THE [facility] Last Admin: 11/03/17 05:39 Dose: Not Given Rosuvastatin Calcium (Crestor) 20 mg PO HS COUNTS INCLUDE 234 BEDS AT THE [facility] Last Admin: 11/02/17 21:14 Dose: Not Given - Labs Labs: 11/03/17 07:47 11/03/17 07:47 PT 12.6 SECONDS (9.7-12.2) H 11/02/17 13:47 INR 1.2 11/02/17 13:47 APTT 29 SECONDS (21-34) 11/02/17 13:47 - Constitutional Appears: No Acute Distress - Head Exam Head Exam: ATRAUMATIC - Eye Exam Eye Exam: EOMI Additional comments: Right sided diplopia - Respiratory Exam Respiratory Exam: NORMAL BREATHING PATTERN. absent: Rhonchi, Wheezes, Respiratory Distress - Cardiovascular Exam Cardiovascular Exam: REGULAR RHYTHM, +S1, +S2 - GI/Abdominal Exam GI & Abdominal Exam: Soft, Normal Bowel Sounds. absent: Rigid, Tenderness - Extremities Exam Extremities Exam: absent: Pedal Edema Additional comments: Left-sided weakness 4/5 Strength b/l upper and lower extremities With mild drift on leg motor function. - Neurological Exam Neurological Exam: Abnormal Gait, Alert, Awake, Motor Sensory Deficit, Oriented x3 Neuro motor strength exam: Left Upper Extremity: 4, Right Upper Extremity: 4, Left Lower Extremity: 4, Right Lower Extremity: 4 - Psychiatric Exam Psychiatric exam: Flat Affect - Skin Skin Exam: Normal Color Assessment and Plan (1) Ischemic stroke Assessment & Plan: Secondary to underlying CADASIL syndrome Imaging: Head CT without contrast: No intracranial hemorrhage or evidence of acute infarct. Severe chronic white matter ischemic change. Old basal ganglia/ thalamic lacunar infarcts. MRI W/O Contrast: There is a small acute/ subacute infarct in the right posterior frontoparietal white matter. Extensive diffuse and confluent chronic white matter ischemic changes seen extending peripherally into the deep and subcortical white matter both cerebral hemispheres. Involvement of the temporal lobes. Multiple more discrete chronic appearing infarcts also seen. Medications: * Pletal 100mg PO BID (Anti-platelet contraindicated due to hx of hemorrhagic stroke * Crestor 20mg PO HS * Permissive elevated BP for 24 hours since admission; treat BP of 220/110mmhg * PT/OT evaluation for recommendation * Will continue to monitor All plans and management discussed with Dr. Bunn Status: Acute
--- NOTE | 2017-11-03 11:32 | CARD ---
APPROVED REPORT Date of service: 11/02/2017 EKG Measurement Heart [id number] <Conclusion> Normal sinus rhythm Nonspecific T wave abnormality Abnormal ECG
--- NOTE | 2017-11-03 16:14 | CP.PCM.DIS ---
Addendum entered and electronically signed by Mary Kate Meyers 11/04/17 20:21: Patient received a bed at [facility] today and left at 1330. He was advised to follow up with his PMD Dr. Griffith as well as the previously listed specialists. There were no overnight events and the patient is exhibiting retention of neural function. No changes from yesterday. Original Note: <Mary Kate Meyers - Last Filed: 11/03/17 18:58> Provider - Provider Date of Admission: 11/03/17 15:32 Attending physician: Aria Hawthorne DO Time Spent in preparation of Discharge (in minutes): 60 Hospital Course - Lab Results Lab Results: Most Recent Lab Values WBC 5.7 K/uL (4.8-10.8) 11/03/17 07:47 RBC 4.47 Mil/uL (4.40-5.90) 11/03/17 07:47 Hgb 14.3 g/dL (12.0-18.0) 11/03/17 07:47 Hct 41.6 % (35.0-51.0) 11/03/17 07:47 MCV 92.9 fL (80.0-94.0) 11/03/17 07:47 MCH 31.8 pg (27.0-31.0) H 11/03/17 07:47 MCHC 34.3 g/dL (33.0-37.0) 11/03/17 07:47 RDW 13.5 % (11.5-14.5) 11/03/17 07:47 Plt Count 106 K/uL (130-400) L 11/03/17 07:47 MPV 10.3 fL (7.2-11.7) 11/03/17 07:47 Neut % (Auto) 64.4 % (50.0-75.0) 11/03/17 07:47 Lymph % (Auto) 27.2 % (20.0-40.0) 11/03/17 07:47 Morrill % (Auto) 6.8 % (0.0-10.0) 11/03/17 07:47 Eos % (Auto) 1.0 % (0.0-4.0) 11/03/17 07:47 Baso % (Auto) 0.6 % (0.0-2.0) 11/03/17 07:47 Neut # (Auto) 3.7 K/uL (1.8-7.0) 11/03/17 07:47 Lymph # (Auto) 1.5 K/uL (1.0-4.3) 11/03/17 07:47 Morrill # (Auto) 0.4 K/uL (0.0-0.8) 11/03/17 07:47 Eos # (Auto) 0.1 K/uL (0.0-0.7) 11/03/17 07:47 Baso # (Auto) 0.0 K/uL (0.0-0.2) 11/03/17 07:47 Differential Comment 11/02/17 13:47 PT 12.6 SECONDS (9.7-12.2) H 11/02/17 13:47 INR 1.2 11/02/17 13:47 APTT 29 SECONDS (21-34) 11/02/17 13:47 Sodium 144 mmol/L (132-148) 11/03/17 07:47 Potassium 3.7 mmol/L (3.6-5.2) 11/03/17 07:47 Chloride 108 mmol/L (98-107) H 11/03/17 07:47 Carbon Dioxide 29 mmol/L (22-30) 11/03/17 07:47 Anion Gap 12 (10-20) 11/03/17 07:47 BUN 7 mg/dL (9-20) L 11/03/17 07:47 Creatinine 0.7 mg/dL (0.8-1.5) L 11/03/17 07:47 Est GFR ( Amer) > 60 11/03/17 07:47 Est GFR (Non-Af Amer) > 60 11/03/17 07:47 POC Glucose (mg/dL) 111 mg/dL (65-110) H 11/03/17 12:25 Random Glucose 81 mg/dL (75-110) 11/03/17 07:47 Hemoglobin A1c 4.7 % (4.2-6.5) 11/02/17 13:47 Calcium 8.7 mg/dl (8.6-10.4) 11/03/17 07:47 Phosphorus 2.8 mg/dL (2.5-4.5) 11/03/17 07:47 Magnesium 2.1 mg/dL (1.6-2.3) 11/03/17 07:47 Total Bilirubin 1.3 mg/dL (0.2-1.3) 11/03/17 07:47 AST 32 U/L (17-59) 11/03/17 07:47 ALT 32 U/L (21-72) 11/03/17 07:47 Alkaline Phosphatase 66 U/L (38-126) 11/03/17 07:47 Total Creatine Kinase 78 U/L (55-170) 11/03/17 01:03 CK-MB (Mass) 0.75 ng/mL (0.0-3.38) 11/03/17 01:03 Troponin I < 0.0120 ng/mL (0.00-0.120) 11/03/17 01:03 Total Protein 6.7 g/dL (6.3-8.3) 11/03/17 07:47 Albumin 4.3 g/dL (3.5-5.0) 11/03/17 07:47 Globulin 2.4 gm/dL (2.2-3.9) 11/03/17 07:47 Albumin/Globulin Ratio 1.8 (1.0-2.1) 11/03/17 07:47 Triglycerides 136 mg/dL (0-149) 11/02/17 13:47 Cholesterol 164 mg/dL (0-199) 11/02/17 13:47 LDL Cholesterol Direct 106 mg/dL (0-129) 11/02/17 13:47 HDL Cholesterol 36 mg/dL (30-70) 11/02/17 13:47 Urine Color Yellow (YELLOW) 11/02/17 16:19 Urine Clarity Clear (Clear) 11/02/17 16:19 Urine pH 7.0 (5.0-8.0) 11/02/17 16:19 Ur Specific Reydon 1.011 (1.003-1.030) 11/02/17 16:19 Urine Protein Negative mg/dL (NEGATIVE) 11/02/17 16:19 Urine Glucose (UA) Normal mg/dL (Normal) 11/02/17 16:19 Urine Ketones Negative mg/dL (NEGATIVE) 11/02/17 16:19 Urine Blood Negative (NEGATIVE) 11/02/17 16:19 Urine Nitrate Negative (NEGATIVE) 11/02/17 16:19 Urine Bilirubin Negative (NEGATIVE) 11/02/17 16:19 Urine Urobilinogen Normal mg/dL (0.2-1.0) 11/02/17 16:19 Ur Leukocyte Esterase Neg Aleida/uL (Negative) 11/02/17 16:19 Urine WBC (Auto) < 1 /hpf (0-5) 11/02/17 16:19 Urine RBC (Auto) < 1 /hpf (0-3) 11/02/17 16:19 Urine Bacteria Rare (<OCC) 11/02/17 16:19 Blood Type O POSITIVE 11/02/17 13:55 Antibody Screen Negative 11/02/17 13:55 - Hospital Course Hospital Course: 62 year old male with past medical history of multiple strokes (CADASIL Syndrome ), dyslipidemia, and hypothyroidism, presents with slurred speech and left side weakness. Patient woke up this morning at 7:30 and noticed his own difficulty speaking, and he told his that he thought he was having a stroke. Patient' s reports that patient did not get up in the middle of the night to urinate , as he usually does. She also noticed that he had inversion of his left foot and that he had gait changes. Patient already had some left sided weakness, gait abnormalities, diplopia, and dysarthria prior to this event. Patient admits cough and weakness. He denies chest pain, difficulty breathing, headache , abdominal pain, nausea/vomiting, diarrhea/constipation, dysurea, changes in vision/hearing, bleeding, rash, leg/back pain. CXR showed minor bibasilar atelectasis. Head CT showed no intracranial hemorrhage or evidence of acute infarct. Severe chronic white matter ischemic change and old basal ganglia/thalamic lacunar infarcts were noted. Head MRI showed a small acute/subacute infarct in the right posterior frontoparietal white matter. Extensive diffuse and confluent chronic white matter changes consistent with previous imaging and persisting sequelae of CADASIL syndrome. Moderate to significant generalized volume loss with numerous tiny focal areas of very dark T2 signal scattered about both cerebral hemispheres consistent with hemosiderin deposits secondary to chronic hemorrhage. Neuro stopped all antiplatelet and anticoagulants and started Cilostazol 100mg po bid and permissive hypertension for perfusion of the penumbra. Primary Diagnosis: Ischemic Stroke 2/2 CADASIL syndrome Patient stable for discharge per Dr. Hawthorne. Patient should NOT resume all home medications such as Plavix. Patient should additionally take the medications listed below as prescribed Pletal 100mg by mouth twice a day Patient should make an appointment and follow up with PMD and Neuro within one week. Patient should return to ED immediately if symptoms return or worsen. Instructions discussed with patient who understood and agreed. This is a summary of the hospital course. Please refer to the EMR for more details. - Date & Time of H&P Date of H&P: 11/03/17 Time of H&P: 14:35 Discharge Exam - Head Exam Head Exam: ATRAUMATIC, NORMOCEPHALIC - Eye Exam Eye Exam: absent: Conjunctival injection, Nystagmus, Periorbital tenderness, Scleral icterus Pupil Exam: absent: Miosis, Mydriatic, Unequal Additional comments: diminished range of motion in right eye - ENT Exam ENT Exam: Mucous Membranes Moist, Normal Exam - Respiratory Exam Respiratory Exam: Clear to PA & Lateral, NORMAL BREATHING PATTERN, UNREMARKABLE. absent: Accessory Muscle Use, Rales, Rhonchi, Wheezes - Cardiovascular Exam Cardiovascular Exam: REGULAR RHYTHM, +S1, +S2. absent: Gallop, Rubs, Systolic Murmur - GI/Abdominal Exam GI & Abdominal Exam: Normal Bowel Sounds, Soft. absent: Distended, Firm, Rebound, Rigid, Tenderness - Extremities Exam Extremities exam: pedal pulses present Additional comments: IV in L arm removed prior to discharge peripheral pulses present bilaterally 3+ (radial, DP) - Neurological Exam Neurological exam: Abnormal Gait, Alert, Oriented x3 Additional comments: slurred speech, cerebellar function intact (finger to nose), right sided motor intact, left sided motor 3/5 in all planes of motion sensation intact - Psychiatric Exam Psychiatric exam: Normal Affect, Normal Mood - Skin Skin Exam: Dry, Intact, Normal Color, Warm Discharge Plan - Discharge Medications Prescriptions: Cilostazol [Pletal] 100 mg PO BID #60 tab - Follow Up Plan Condition: STABLE Disposition: REHAB FACILITY/REHAB UNIT Instructions: Heart Healthy Diet, Stroke (DC), Cilostazol, Drugs to Help Lower Your Cholesterol Additional Instructions: Patient stable for discharge per Dr. Hawthorne. Patient should NOT resume all home medications such as Plavix. Patient should additionally take the medications listed below as prescribed Pletal 100mg by mouth twice a day Patient should make an appointment and follow up with PMD and Neuro within one week. Patient should return to ED immediately if symptoms return or worsen. Instructions discussed with patient who understood and agreed. Paciente estable para el prateek por Dr. Hawthorne. El paciente NO debe reanudar todos los medicamentos en el hogar, sarah Plavix. El paciente tambin debe jonel los medicamentos enumerados a continuacin sarah se prescribe Pletal 100mg por va oral dos veces al da El paciente debe programar rob sabine y realizar un seguimiento con PMD y Neuro dentro de rob semana. El paciente debe regresar a la lyudmila de urgencias inmediatamente si los sntomas reaparecen o empeoran. Instrucciones discutidas con el paciente que entendi y estuvo de acuerdo. Referrals: Thierry Bunn MD [Staff Provider] - Clinical Quality Measures - CQM - Stroke Antithrombotic Prescribed: Medical Contraindication Present Contranindication/Reason for not providing: Other If Other selected, reason for not providing: has rare brain bleed disorder Anticoagulation Prescribed for Atrial Flutter, Atrial Fibrillation and History of:: Medical Contraindication Present Contranindication/Reason for not providing: Other Other Contraindication/Reason for not providing: has rare brain bleed disorder Statin prescribed: Yes <Aria Hawthorne V - Last Filed: 11/07/17 00:21> Provider - Provider Date of Admission: 11/03/17 15:32 Attending physician: Aria Hawthorne DO Diagnosis - Discharge Diagnosis (1) 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 Priority: Medium (2) History of blurry vision Status: Acute (3) Slurred speech Status: Acute (4) Hyperlipidemia Status: Acute (5) Hypothyroid Status: Chronic Priority: Medium (6) Prophylactic measure Status: Acute Hospital Course - Lab Results Lab Results: Most Recent Lab Values WBC 6.8 K/uL (4.8-10.8) 11/04/17 07:36 RBC 4.29 Mil/uL (4.40-5.90) L 11/04/17 07:36 Hgb 13.6 g/dL (12.0-18.0) 11/04/17 07:36 Hct 39.6 % (35.0-51.0) 11/04/17 07:36 MCV 92.3 fL (80.0-94.0) 11/04/17 07:36 MCH 31.7 pg (27.0-31.0) H 11/04/17 07:36 MCHC 34.3 g/dL (33.0-37.0) 11/04/17 07:36 RDW 13.5 % (11.5-14.5) 11/04/17 07:36 Plt Count 102 K/uL (130-400) L 11/04/17 07:36 MPV 10.2 fL (7.2-11.7) 11/04/17 07:36 Neut % (Auto) 71.8 % (50.0-75.0) 11/04/17 07:36 Lymph % (Auto) 19.3 % (20.0-40.0) L 11/04/17 07:36 Morrill % (Auto) 7.4 % (0.0-10.0) 11/04/17 07:36 Eos % (Auto) 1.2 % (0.0-4.0) 11/04/17 07:36 Baso % (Auto) 0.3 % (0.0-2.0) 11/04/17 07:36 Neut # (Auto) 4.9 K/uL (1.8-7.0) 11/04/17 07:36 Lymph # (Auto) 1.3 K/uL (1.0-4.3) 11/04/17 07:36 Morrill # (Auto) 0.5 K/uL (0.0-0.8) 11/04/17 07:36 Eos # (Auto) 0.1 K/uL (0.0-0.7) 11/04/17 07:36 Baso # (Auto) 0.0 K/uL (0.0-0.2) 11/04/17 07:36 Differential Comment 11/02/17 13:47 PT 12.6 SECONDS (9.7-12.2) H 11/02/17 13:47 INR 1.2 11/02/17 13:47 APTT 29 SECONDS (21-34) 11/02/17 13:47 Sodium 144 mmol/L (132-148) 11/04/17 07:36 Potassium 4.0 mmol/L (3.6-5.2) 11/04/17 07:36 Chloride 105 mmol/L (98-107) 11/04/17 07:36 Carbon Dioxide 31 mmol/L (22-30) H 11/04/17 07:36 Anion Gap 12 (10-20) 11/04/17 07:36 BUN 10 mg/dL (9-20) 11/04/17 07:36 Creatinine 1.0 mg/dL (0.8-1.5) 11/04/17 07:36 Est GFR ( Amer) > 60 11/04/17 07:36 Est GFR (Non-Af Amer) > 60 11/04/17 07:36 POC Glucose (mg/dL) 92 mg/dL (65-110) 11/04/17 12:12 Random Glucose 91 mg/dL (75-110) 11/04/17 07:36 Hemoglobin A1c 4.7 % (4.2-6.5) 11/02/17 13:47 Calcium 9.0 mg/dl (8.6-10.4) 11/04/17 07:36 Phosphorus 3.2 mg/dL (2.5-4.5) 11/04/17 07:36 Magnesium 2.2 mg/dL (1.6-2.3) 11/04/17 07:36 Total Bilirubin 1.2 mg/dL (0.2-1.3) 11/04/17 07:36 AST 21 U/L (17-59) 11/04/17 07:36 ALT 34 U/L (21-72) 11/04/17 07:36 Alkaline Phosphatase 63 U/L (38-126) 11/04/17 07:36 Total Creatine Kinase 78 U/L (55-170) 11/03/17 01:03 CK-MB (Mass) 0.75 ng/mL (0.0-3.38) 11/03/17 01:03 Troponin I < 0.0120 ng/mL (0.00-0.120) 11/03/17 01:03 Total Protein 6.3 g/dL (6.3-8.3) 11/04/17 07:36 Albumin 3.9 g/dL (3.5-5.0) 11/04/17 07:36 Globulin 2.4 gm/dL (2.2-3.9) 11/04/17 07:36 Albumin/Globulin Ratio 1.6 (1.0-2.1) 11/04/17 07:36 Triglycerides 136 mg/dL (0-149) 11/02/17 13:47 Cholesterol 164 mg/dL (0-199) 11/02/17 13:47 LDL Cholesterol Direct 106 mg/dL (0-129) 11/02/17 13:47 HDL Cholesterol 36 mg/dL (30-70) 11/02/17 13:47 Urine Color Yellow (YELLOW) 11/02/17 16:19 Urine Clarity Clear (Clear) 11/02/17 16:19 Urine pH 7.0 (5.0-8.0) 11/02/17 16:19 Ur Specific Reydon 1.011 (1.003-1.030) 11/02/17 16:19 Urine Protein Negative mg/dL (NEGATIVE) 11/02/17 16:19 Urine Glucose (UA) Normal mg/dL (Normal) 11/02/17 16:19 Urine Ketones Negative mg/dL (NEGATIVE) 11/02/17 16:19 Urine Blood Negative (NEGATIVE) 11/02/17 16:19 Urine Nitrate Negative (NEGATIVE) 11/02/17 16:19 Urine Bilirubin Negative (NEGATIVE) 11/02/17 16:19 Urine Urobilinogen Normal mg/dL (0.2-1.0) 11/02/17 16:19 Ur Leukocyte Esterase Neg Aleida/uL (Negative) 11/02/17 16:19 Urine WBC (Auto) < 1 /hpf (0-5) 11/02/17 16:19 Urine RBC (Auto) < 1 /hpf (0-3) 11/02/17 16:19 Urine Bacteria Rare (<OCC) 11/02/17 16:19 Blood Type O POSITIVE 11/02/17 13:55 Antibody Screen Negative 11/02/17 13:55 Attending/Attestation - Attestation I have personally seen and examined this patient.: Yes I have fully participated in the care of the patient.: Yes I have reviewed all pertinent clinical information, including history, physical exam and plan: Yes Notes (Text): This is late computer entry for 11/03/17 Patient seen, examined and case discussed with medical underwriter. Patient seen with at bedside. 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 Per NIH, there is no cure to this syndrome and it is not recommended to be on any anti-platelets, anti-thrombolytic therapy given the high risk of microbleeds. Patient has been off anti-platelets and aspirin since his prior stroke in 2016. Patient came to the hospital yesterday, Patient has passed official swallow. Diet updated in the EMR. Patient has a known history of hypothyroidism and hyperlipidemia. Cardiac enzymes X3 negative. Patient is seen by neurology outpatient but is away on vacation. PT and OT have evaluated patient. Recommended for acute rehab. I have discussed with social work; given family opts for acute rehab. Changed to inpatient for further conditioning. Discharge order is pending bed availability. Assessment/plan 1) Slurry Speech History of Cadasil Syndrome History of Multiple Strokes Assessment/Plan * Changed to inpatient * Neurology (Dr. Bunn) on board help appreciated * Per NIH, this is the most common inheritable type of stroke due to autosominal dominant genetic predispostion. patient has had workup in the past to confirm. There is no cure to this syndrome and it is not recommended to be on any anti-platelets, anti-thrombolytic therapy given the high risk of microbleeds. * Hgba1c: 4.7 * Lipid Panel: T, Cholestrol: 164, LDL: 106, HDL: 36 * LD X3:negative * Passed swallow eval * Crestor 20mg POqHS * NS 100cc/hr * CT Head (11/02/17): no intracranial hemorrhage or evidence of acute infarct. Severe chronic white matter ischemic change. Old basal ganglia/thalamic lacunar infarcts. * Official Brain MRI available in the EMR. 2. Hypothyroidism Assessment/Plan * Resumed home medication: Synthroid 75mcg PO daily 3. Hyperlipidemia Assessment/Plan * Resumed home medication: Crestor 20mg POqHS 4. Prophylactic measure * No chemical anticoagulation--->patient has Cadasil syndrome which has a high risk of microbleeds and prior history of hemorrhagic stroke in 2016 * PT; acute rehab * Passed swallow eval * IV fluids * Hypoglycemic protocol * Social work rehab Disposition: Patient is pending acute rehab bed available at [facility]. Social work to follow-up.
[2017-11-04] MEDS: Levothyroxine 75 MCG TAB PO SCH (05:51)
[2017-11-04 07:44] LABS: BASO % 0.3 % (0.0-2.0); EOS # 0.1 K/uL (0.0-0.7); EOS % 1.2 % (0.0-4.0); HEMOGLOBIN 13.6 g/dL (12.0-18.0); LYMPH # 1.3 K/uL (1.0-4.3); LYMPH % 19.3 % (20.0-40.0); MEAN CELL VOLUME 92.3 fL (80.0-94.0); MEAN CORPUSCULAR HEMOGLOBIN 31.7 pg (27.0-31.0); MEAN CORPUSCULAR HGB CONC 34.3 g/dL (33.0-37.0); MEAN PLATELET VOLUME 10.2 fL (7.2-11.7); MONO # 0.5 K/uL (0.0-0.8); MONO % 7.4 % (0.0-10.0); NEUT # 4.9 K/uL (1.8-7.0); NEUT % 71.8 % (50.0-75.0); RBC 4.29 Mil/uL (4.40-5.90); RED CELL DISTRIBUTION WIDTH 13.5 % (11.5-14.5); WHITE BLOOD COUNT 6.8 K/uL (4.8-10.8)
[2017-11-04 08:06] LABS: ALB/GLOB RATIO 1.6 (1.0-2.1); ALBUMIN 3.9 g/dL (3.5-5.0); ALT/SGPT 34 U/L (21-72); AST/SGOT 21 U/L (17-59); BLOOD UREA NITROGEN 10 mg/dL (9-20); GFR AFRICAN-AMERICAN > 60; GFR NON-AFRICAN AMERICAN > 60
[2017-11-04 08:59] VITALS: BP 116/66; TEMP 97.9
[2017-11-04] MEDS: Cilostazol 100 mg Tab UD PO SCH (09:36)
[2017-11-04] MEDS ORDERED: Pneumococcal 23-Valent Vaccine IM ONE (12:00)
[2017-11-04 14:59] VITALS: PULSE 71
== END 2017-11-04 14:27 | DRG 69 ==
LOC: C.ER 13:17 → C.9E 16:45 → C.6T 19:10 → OBSVTOIN 11-03 15:32
PROVIDERS: ADMIT Hospitalist; ATTEND Hospitalist
DX: I67.89 Other cerebrovascular disease (principal); G93.49 Other encephalopathy; I69.254 Hemiplegia and hemiparesis following other nontraumatic intracranial hemorrhage affecting left non-dominant side; I68.8 Other cerebrovascular disorders in diseases classified elsewhere; I69.228 Other speech and language deficits following other nontraumatic intracranial hemorrhage; G47.30 Sleep apnea, unspecified; E78.5 Hyperlipidemia, unspecified; E03.9 Hypothyroidism, unspecified; I10 Essential (primary) hypertension; Z87.891 Personal history of nicotine dependence; R29.708 NIHSS score 8; I77.89 Other specified disorders of arteries and arterioles

== ENCOUNTER 2018-04-04 08:33 | Emergency (ER) | payer MEDICARE ==
[2018-04-04 08:39] VITALS: BMI 28.1
[2018-04-04 08:42] VITALS: O2SAT 95
[2018-04-04 09:36] LABS: SQUAMOUS EPITHIAL < 1 /hpf (0-5); URINE BACTERIA OCC (<OCC); URINE BILIRUBIN NEGATIVE (NEGATIVE); URINE BLOOD 3+ (NEGATIVE); URINE CLARITY Hazy (Clear); URINE COLOR Yellow (YELLOW); URINE GLUCOSE (UA) NORMAL (Normal); URINE LEUKOCYTE ESTERASE NEG Leu/uL (Negative); URINE PROTEIN 2+ mg/dL (NEGATIVE)
[2018-04-04 09:48] LABS: INR 1.2; PROTHROMBIN TIME 12.6 SECONDS (9.7-12.2)
[2018-04-04 09:52] LABS: ALB/GLOB RATIO 1.2 (1.0-2.1); ALBUMIN 3.8 g/dL (3.5-5.0); ALT/SGPT 42 U/L (21-72); AST/SGOT 36 U/L (17-59); BLOOD UREA NITROGEN 9 mg/dL (9-20); CALCIUM 8.7 mg/dl (8.6-10.4); GFR NON-AFRICAN AMERICAN > 60
[2018-04-04 09:56] LABS: BASO % 0.3 % (0.0-2.0); EOS # 0.1 K/uL (0.0-0.7); EOS % 1.7 % (0.0-4.0); HEMOGLOBIN 13.2 g/dL (12.0-18.0); LYMPH % 15.6 % (20.0-40.0); MEAN CELL VOLUME 91.5 fL (80.0-94.0); MEAN CORPUSCULAR HEMOGLOBIN 30.9 pg (27.0-31.0); MEAN CORPUSCULAR HGB CONC 33.8 g/dL (33.0-37.0); MEAN PLATELET VOLUME 9.6 fL (7.2-11.7); MONO # 0.5 K/uL (0.0-0.8); MONO % 7.3 % (0.0-10.0); NEUT # 4.6 K/uL (1.8-7.0); NEUT % 75.1 % (50.0-75.0); RBC 4.26 Mil/uL (4.40-5.90); WHITE BLOOD COUNT 6.1 K/uL (4.8-10.8)
--- NOTE | 2018-04-04 10:16 | C.PDOC ---
History Of Present Illness 62 y/o male with a PMHx of CVA with resulting left-sided weakness, BPH (on Flomax previously), presents today complaining of increased frequency with decreased strain for the past few days. Associated with some discomfort on urination. Otherwise patient denies any fever, chills, nausea, vomiting, diarrhea, abdominal pain, or trauma. Time Seen by Provider: 04/04/18 09:12 Chief Complaint (Nursing): Male Genitourinary History Per: Patient History/Exam Limitations: no limitations Onset/Duration Of Symptoms: Days Current Symptoms Are (Timing): Still Present Past Medical History Reviewed: Historical Data, Nursing Documentation, Vital Signs Vital Signs: Last Vital Signs Temp 98.3 F 04/04/18 08:38 Pulse 97 H 04/04/18 08:38 Resp 20 04/04/18 08:38 BP 126/76 04/04/18 08:38 Pulse Ox 95 04/04/18 08:38 - Medical History PMH: Depression, Hypercholesterolemia, Hypothyroidism, Sleep Apnea (Uses C-PAP HS) Denies: HIV, Chronic Kidney Disease - [facility] Procedures APHASIA TREATMENT USING AUGMENT COMM EQUIPMENT (11/04/17) EXERCISE TREATMENT OF MUSCULOSK WHOLE USING ASSIST EQUIPMENT (07/16/15) EXERCISE TRMT MUSCULOSK LOW BACK/LE W ASSIST EQUIP (11/04/17) EXERCISE TRMT MUSCULOSK UP BACK/UE W ASSIST EQUIP (11/04/17) GAIT TRAINING/AMBULAT TREATMENT USING ASSIST EQUIPMENT (11/04/17) HOME MANAGEMENT TREATMENT USING ASSIST EQUIPMENT (11/04/17) SPINAL TAP (05/07/98) Family History: States: Unknown Family Hx - Social History Hx Alcohol Use: No Hx Substance Use: No - Immunization History Hx Tetanus Toxoid Vaccination: Yes Hx Influenza Vaccination: Yes Hx Pneumococcal Vaccination: Yes Review Of Systems Except As Marked, All Systems Reviewed And Found Negative. Constitutional: Negative for: Fever, Chills Gastrointestinal: Negative for: Nausea, Vomiting, Abdominal Pain, Diarrhea Genitourinary: Positive for: Dysuria, Frequency. Negative for: Hematuria, Rash Musculoskeletal: Negative for: Back Pain Neurological: Negative for: Weakness, Dizziness Physical Exam - Physical Exam Appears: Non-toxic, No Acute Distress Skin: Normal Color, Warm, Dry Head: Atraumatic, Normacephalic Eye(s): bilateral: Normal Inspection, PERRL, EOMI Oral Mucosa: Moist Neck: Normal ROM Chest: Symmetrical Cardiovascular: Rhythm Regular, No Murmur Respiratory: Normal Breath Sounds, No Accessory Muscle Use, Other (No respiratory distress) Gastrointestinal/Abdominal: Soft, No Tenderness, No Distention, No Guarding, No Rebound Male Genital: Normal Inspection, No Testicular Tenderness, No Testicular Swelling Extremity: Bilateral: Atraumatic, Normal Color And Temperature, Normal ROM Neurological/Psych: Oriented x3, Normal Speech Gait: Steady ED Course And Treatment - Laboratory Results Result Diagrams: 04/04/18 09:37 04/04/18 09:37 O2 Sat by Pulse Oximetry: 95 (RA) Pulse Ox Interpretation: Normal Medical Decision Making Medical Decision Making: Impression: Dysuria Initial Plan: --CMP --CBC --PTT/PT --UA --Bladder scan Patient started on PO Cipro and Flomax. Bladder scan showed 40 and then 100cc. Plan is to d/c patient home with prescriptions for the same. Advised to follow up with urology, referral provided for on-call urologist Dr. Cox. Disposition Counseled Patient/Family Regarding: Studies Performed, Diagnosis, Need For Followup, Rx Given - Disposition Referrals: Harsha Cox Jr., MD [Staff Provider] - Disposition: HOME/ ROUTINE Disposition Time: 10:15 Condition: STABLE Additional Instructions: follow up with Dr. Cox within 2 days call to make an appointment take medications as prescribed return to ER if symptoms worsens or progress Prescriptions: Ciprofloxacin HCl [Cipro] 500 mg PO BID #14 tab Tamsulosin HCl [Flomax] 0.4 mg PO DAILY #10 cap.er.24h Instructions: Dysuria, Adult (DC) Forms: [facility] (Armenian), General Discharge Instructions - Clinical Impression Clinical Impression: Dysuria - Scribe Statement The provider has reviewed the documentation as recorded by the Jaden Fraire Provider Attestation: All medical record entries made by the Rosemaryibelvin were at my direction and personally dictated by me. I have reviewed the chart and agree that the record accurately reflects my personal performance of the history, physical exam, medical decision making, and the department course for this patient. I have also personally directed, reviewed, and agree with the discharge instructions and disposition.
[2018-04-04 10:26] VITALS: BP 132/80; PULSE 80; RESP 18; TEMP 97.7
== END 2018-04-04 10:34 | disposition home or self-care (01) ==
LOC: C.ER 08:33
DX: R30.0 Dysuria (principal)

== ENCOUNTER 2018-06-17 12:55 | Inpatient (IN) | payer MEDICARE ==
[2018-06-17 12:57] VITALS: BMI 30.6
[2018-06-17] MEDS ORDERED: Iodixanol 320 MG/ML 100 ML BOTTLE IV ONE (13:09)
[2018-06-17 13:14] LABS: BASO % 0.4 % (0.0-2.0); EOS % 0.5 % (0.0-4.0); HEMOGLOBIN 14.1 g/dL (12.0-18.0); LYMPH % 22.9 % (20.0-40.0); MEAN CORPUSCULAR HEMOGLOBIN 30.9 pg (27.0-31.0); MEAN PLATELET VOLUME 9.8 fL (7.2-11.7); MONO # 0.3 K/uL (0.0-0.8); MONO % 6.2 % (0.0-10.0); NEUT # 2.9 K/uL (1.8-7.0); NRBC % 0.1 % (0.0-2.0); RBC 4.58 Mil/uL (4.40-5.90); RED CELL DISTRIBUTION WIDTH 14.2 % (11.5-14.5); WHITE BLOOD COUNT 4.2 K/uL (4.8-10.8)
[2018-06-17 13:18] LABS: MEAN CELL VOLUME 93.6 fL (80.0-94.0)
[2018-06-17 13:22] LABS: INR 1.2; PROTHROMBIN TIME 13.1 SECONDS (9.7-12.2)
[2018-06-17 13:27] LABS: ALB/GLOB RATIO 1.8 (1.0-2.1); ALBUMIN 4.5 g/dL (3.5-5.0); ALT/SGPT 28 U/L (21-72); AST/SGOT 26 U/L (17-59); BLOOD UREA NITROGEN 8 mg/dL (9-20); CALCIUM 8.8 mg/dl (8.6-10.4); GFR NON-AFRICAN AMERICAN > 60; HDL CHOLESTEROL 48 mg/dL (30-70)
--- NOTE | 2018-06-17 13:32 | CT ---
Date of service: 06/17/2018 PROCEDURE: CT HEAD WITHOUT CONTRAST. HISTORY: Code Stroke. Patient also has history of CADASIL COMPARISON: Comparison made with prior CT scan and MRI both dated 11/02/2017. TECHNIQUE: Axial computed tomography images were obtained through the head/brain without intravenous contrast. Radiation dose: Total exam DLP = 1104.0 mGy-cm. This CT exam was performed using one or more of the following dose reduction techniques: Automated exposure control, adjustment of the mA and/or kV according to patient size, and/or use of iterative reconstruction technique. FINDINGS: HEMORRHAGE: No acute parenchymal, subarachnoid nor extra-axial hemorrhage.. Previously noted numerous hemosiderin deposits scattered throughout both cerebral cerebral, cerebellar hemispheres as well as basal nuclei and brainstem less well seen on this exam as compared to high-resolution MRI. BRAIN: changes again seen extending peripherally into the deep and subcortical white matter both cerebral hemispheres. There is extension of these changes into the white matter tracts of both basal nuclei. Scattered more discrete bilateral basal nuclei and brainstem as well as cerebellar lacunar type infarcts also present. Note that the possibility of a small hyperacute infarct cannot be excluded based on this exam. Clinical correlation recommended. Moderate volume loss somewhat more central evidenced by mild disproportion enlargement of the ventricles compared sulci. Vascular calcifications both carotid siphons VENTRICLES: No obstructive hydrocephalus. CALVARIUM: Calvarium intact PARANASAL SINUSES: Mild mucosal thickening seen within the ethmoid and frontal sinuses. MASTOID AIR CELLS: Unremarkable as visualized. No inflammatory changes. OTHER FINDINGS: None. IMPRESSION: No acute intracranial hemorrhage. Previously noted numerous hemosiderin deposits scattered throughout both cerebral, cerebellar hemispheres as well as basal nuclei and brainstem less well seen on this exam as compared to high-resolution MRI. Significant chronic white matter ischemic changes with as multiple bilateral basal nuclei, and cerebellar and brainstem ischemic changes. Findings may represent underlying CADASIL should also be considered given the patient's history of same Note that the possibility of a small hyperacute infarct cannot be excluded on this exam Moderate central volume loss. Findings discussed with emergency room physician Dr. Otero at approximately 1:24 p.m. with written down and read back verification.
--- NOTE | 2018-06-17 13:33 | C.PDOC ---
History Of Present Illness 62 y/o male is brought in by ambulance for worsening slurred speech and worsening gait. Patient had history of CVA, last one was in October 2017. Patient had residual slurred speech and right lower extremity weakness with abnormal gait, and mild left facial droop. Patient was last seen yesterday around 9pm but went to bed. This morning, patient was in bed until 10am when his daughter noticed he was dragging in his right foot, and had more slurred speech than usual. Daughter was prompted to call ambulance. Time Seen by Provider: 06/17/18 13:03 Chief Complaint (Nursing): Weakness/Neurological Deficit History Per: EMS History/Exam Limitations: no limitations Onset/Duration Of Symptoms: Hrs Current Symptoms Are (Timing): Still Present Past Medical History Reviewed: Historical Data, Nursing Documentation, Vital Signs Vital Signs: Last Vital Signs Temp 98.5 F 06/17/18 13:03 Pulse 85 06/17/18 13:27 Resp 15 06/17/18 13:27 BP 141/85 06/17/18 13:27 Pulse Ox 97 06/17/18 13:27 - Medical History PMH: Depression, HTN, Hypercholesterolemia, Hypothyroidism, Sleep Apnea (Uses C- PAP HS) Denies: HIV, Chronic Kidney Disease - [facility] Procedures APHASIA TREATMENT USING AUGMENT COMM EQUIPMENT (11/04/17) EXERCISE TREATMENT OF MUSCULOSK WHOLE USING ASSIST EQUIPMENT (07/16/15) EXERCISE TRMT MUSCULOSK LOW BACK/LE W ASSIST EQUIP (11/04/17) EXERCISE TRMT MUSCULOSK UP BACK/UE W ASSIST EQUIP (11/04/17) GAIT TRAINING/AMBULAT TREATMENT USING ASSIST EQUIPMENT (11/04/17) HOME MANAGEMENT TREATMENT USING ASSIST EQUIPMENT (11/04/17) SPINAL TAP (05/07/98) Family History: States: No Known Family Hx - Social History Hx Tobacco Use: No Hx Alcohol Use: No Hx Substance Use: No - Immunization History Hx Tetanus Toxoid Vaccination: Yes Hx Influenza Vaccination: Yes Hx Pneumococcal Vaccination: Yes Review Of Systems Except As Marked, All Systems Reviewed And Found Negative. Constitutional: Negative for: Fever, Chills Neurological: Positive for: Change in Speech (slurred), Other (left sided facial droop) Physical Exam - Physical Exam Appears: Non-toxic, No Acute Distress Skin: Warm, Dry Head: Atraumatic, Normacephalic Eye(s): bilateral: Normal Inspection Oral Mucosa: Moist Cardiovascular: Rhythm Regular, No Murmur Respiratory: Normal Breath Sounds, No Rales, No Rhonchi, No Wheezing Extremity: Bilateral: Normal Color And Temperature Neurological/Psych: Other (Mild left-sided facial droop, slurred speech, oriented x2, disoriented to time) ED Course And Treatment - Laboratory Results Result Diagrams: 06/17/18 13:08 06/17/18 13:08 Lab Results: PT 13.1 SECONDS (9.7-12.2) H 06/17/18 13:08 INR 1.2 06/17/18 13:08 APTT 30 SECONDS (21-34) 06/17/18 13:08 Total Bilirubin 0.9 mg/dL (0.2-1.3) 06/17/18 13:08 AST 26 U/L (17-59) 06/17/18 13:08 ALT 28 U/L (21-72) 06/17/18 13:08 Alkaline Phosphatase 75 U/L (38-126) 06/17/18 13:08 Total Protein 7.0 g/dL (6.3-8.3) 06/17/18 13:08 Albumin 4.5 g/dL (3.5-5.0) 06/17/18 13:08 Globulin 2.5 gm/dL (2.2-3.9) 06/17/18 13:08 Albumin/Globulin Ratio 1.8 (1.0-2.1) 06/17/18 13:08 ECG: Interpreted By Me, Viewed By Me ECG Rhythm: Sinus Rhythm Interpretation Of ECG: No ST elevation. QT normal. Rate From EC O2 Sat by Pulse Oximetry: 97 (RA) Pulse Ox Interpretation: Normal - CT Scan/US Head CT Other Rad Studies (CT/US): Read By Radiologist, Radiology Report Reviewed CT/US Interpretation: FINDINGS: HEMORRHAGE: No acute parenchymal, subarachnoid nor extra-axial hemorrhage.. Previously noted numerous hemosiderin deposits scattered throughout both cerebral cerebral, cerebellar hemispheres as well as basal nuclei and brainstem less well seen on this exam as compared to high- resolution MRI. BRAIN: changes again seen extending peripherally into the deep and subcortical white matter both cerebral hemispheres. There is extension of these changes into the white matter tracts of both basal nuclei. Scattered more discrete bilateral basal nuclei and brainstem as well as cerebellar lacunar type infarcts also present. Note that the possibility of a small hyperacute infarct cannot be excluded based on this exam. Clinical correlation recommended. Moderate volume loss somewhat more central evidenced by mild disproportion enlargement of the ventricles compared sulci. Vascular calcifications both carotid siphons. VENTRICLES: No obstructive hydrocephalus. CALVARIUM: Calvarium intact. PARANASAL SINUSES: Mild mucosal thickening seen within the ethmoid and frontal sinuses. MASTOID AIR CELLS: Unremarkable as visualized. No inflammatory changes. OTHER FINDINGS: None. IMPRESSION: No acute intracranial hemorrhage. Previously noted numerous hemosiderin deposits scattered throughout both cerebral, cerebellar hemispheres as well as basal nuclei and brainstem less well seen on this exam as compared to high-resolution MRI. Significant chronic white matter ischemic changes with as multiple bilateral basal nuclei, and cerebellar and brainstem ischemic changes. Findings may represent underlying CADASIL should also be considered given the patient's history of same. Note that the possibility of a small hyperacute infarct cannot be excluded on this exam. Moderate central volume loss. Findings discussed with emergency room physician Dr. Otero at approximately 1:24 p.m. with written down and read back verification. Head/Neck CTA Other Rad Studies (CT/US): Read By Radiologist, Radiology Report Reviewed CT/US Interpretation: FINDINGS: The aortic arch widely patent despite some arpan r calcified atherosclerotic plaque. Minimal calcified plaque seen at the origin of the left subclavian artery. The common carotid arteries included carotid bifurcations widely patent despite some very tiny calcified plaque seen bilaterally left slightly larger than right. The visualized distal internal carotid arteries including the petrous cavernous and supraclinoid segments are patent however there are minor partially calcified atherosclerotic plaque changes seen at both carotid siphons. The vertebral arteries are patent throughout, right-sided which is only minimally larger in caliber/more dominant than the left side. Basilar artery patent as well. The visualized major branches of the [id number] are patent. Distal branches of the anterior middle and posterior cerebral arteries are patent and relatively symmetric so far as can be seen. No evidence of large aneurysm nor vascular malformation. OTHER FINDINGS: Note made of small amount of air within the right and left ju gular veins and right subclavian vein likely due to intravenous injection. Note made of mild passive/dependent type atelectasis seen both posterior upper and lower lobes. IMPRESSION: Very minor calcified plaque changes seen at both carotid bifurcations and carotid siphons. No evidence of dissection occlusion or significant stenosis. No evidence of large aneurysm nor vascular malformation. Critical Care Time - Critical Care Note Total Time (in mins): 40 Documented critical care: time excludes all time spent performing seperately billable procedures. NIHSS Stroke Scale 2 - How Severe is the Stroke Facial: 1=Minor asymmetry Dysarthia: 1=Mild to moderate slurring Medical Decision Making Medical Decision Making: Plan: --CTA Head --Head CT --EKG --Labs --Chest XR --IV fluids 13:39 -- Case discussed with Dr. Bunn. Patient is not candidate for tPA, time of onset is unknown. 13:54 -- Case discussed with Dr. Jones. Accept patient to telemetry. 13:56 -- Case discussed with Dr. Griffith, admit patient to service. 14:03 -- Spoke to Dr. Bunn. Aspirin 81 mg PO and IV fluids ordered. Disposition Discussed With Dr.: Suzanne Jones Doctor Will See Patient In The: Hospital - Disposition Disposition: HOSPITALIZED Disposition Time: 14:07 Condition: GUARDED - Clinical Impression Clinical Impression: Acute encephalopathy - Scribe Statement The provider has reviewed the documentation as recorded by the Jaden Garcia Provider Attestation: All medical record entries made by the Jaden were at my direction and personally dictated by me. I have reviewed the chart and agree that the record accurately reflects my personal performance of the history, physical exam, medical decision making, and the department course for this patient. I have also personally directed, reviewed, and agree with the discharge instructions and disposition.
[2018-06-17 13:38] LABS: LDL CHOLESTEROL 62 mg/dL (0-129)
--- NOTE | 2018-06-17 13:40 | PCM.TLSTRK ---
TeleStroke Consultation - Consultation This telehealth visit and patient is being seen on: 06/17/18 The teleneurologist and local physician agreed that telephone exchange of information was sufficient for this consultation and did not require video examination at this time.: No Telehealth services using bi-directional audio/video at [facility]: [facility] Active/open-ended communication was used to verify the patient's full name, and date of with: Hospital staff/MD at patient's bedside - History of Present Illness Chief/Complaint/History of Present of Illness: The patient is a 62 year-old M with a past medical history of previous ischemic strokes and residual weakness/speech difficulty, who is on cilostazol, and was last at his baseline last night, but this morning, his daughter noticed that his symptoms may be worsening. - Imaging CT Head: Obtained, Reviewed CT Head show: Chronic ischemic changes bilateral subcortical infarcts and lacunar infarcts in the basal ganalia and roldan radiata, difficult to determine if there are acute changes due to the significant chronic ischemic changes. CTA Head: Obtained, Reviewed CTA Head show: No LVO detected. TeleStroke Patient History - Past Family History Pertinent Family History: Problem Relation Age of Onset - Past Social History Smoking Status: Former Smoker - CARDIAC Hx Hypercholesterolemia: Yes Hx Hypertension: Yes - PULMONARY Hx Sleep Apnea: Yes (Uses C-PAP HS) - NEUROLOGICAL HX Cerebrovascular Accident: Yes (left sided weakness) Other/Comment: CADASIL SYNDROME. Hx of multiple CVAs past with last one as of October 2017 - HEENT Hx HEENT Problems: Yes Other/Comment: left eye double vision late 1997 - RENAL Hx Chronic Kidney Disease: No - ENDOCRINE/METABOLIC Hx Hypothyroidism: Yes - HEMATOLOGICAL/ONCOLOGICAL Hx Human Immunodeficiency Virus (HIV): No - INTEGUMENTARY Hx Dermatological Problems: No - MUSCULOSKELETAL/RHEUMATOLOGICAL Hx Falls: Yes - GASTROINTESTINAL Hx Gastrointestinal Disorders: Yes - GENITOURINARY/GYNECOLOGICAL Hx Genitourinary Disorders: No - PSYCHIATRIC Hx Depression: Yes Hx Substance Use: No - SURGICAL HISTORY Hx Musculoskeletal Surgery: Yes ([employer].) - ANESTHESIA Hx Anesthesia: Yes Hx Anesthesia Reactions: No Hx Malignant Hyperthermia: No Meds Allergies/Adverse Reactions: Allergies Allergy/AdvReac Type Severity Reaction Status Date / Time No Known Allergies Allergy Verified 06/17/18 13:10 - Medications Medications: Current Medications Sodium Chloride (Sodium Chloride 0.9%) 1,000 mls @ 100 mls/hr IV .Q10H [facility] Review of Systems - Review of Systems All systems: reviewed and no additional remarkable complaints except NIHSS Stroke Scale - How Severe is the Stroke Level of Consciousness: 0=Alert LOC to Questions: 0=Both comments correct LOC to commands: 0=Obeys both correctly Best Gaze: 0=Normal Visual: 0=No visual loss Facial: 0=Normal Motor Arm - Left: 0=No drift Motor Arm - Right: 1=Drift noted before 10 sec Motor Leg - Left: 0=No drift Motor Leg - Right: 0=No drift Limb Ataxia: 0=Absent Sensory: 0=Normal Best Language: 1=Mild to moderate aphasia Dysarthia: 1=Mild to moderate slurring Extinction & Inattention (Neglect): 0=Normal, no object Score: 3 TeleStroke Exam - General Medical Examination Vital Signs (last 24 hours): Vital Signs - 24 hr 06/17/18 06/17/18 06/17/18 13:03 13:27 13:35 Temperature 98.5 F Pulse Rate 109 H 85 Respiratory 20 15 Rate Blood Pressure 141/90 141/85 O2 Sat by Pulse 99 97 97 Oximetry Weight in kilograms: 86.758469 - Neurological Examination Mental Status: Positive for: Fully Oriented Cranial Nerves: Positive for: Eye closure and smile were symmetric TeleStroke Plan - Review Patient's current medication list, allergies and medical problems were verified by the following method: 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 Appears to be more confusion with acute encephalopathy. Not a candidate for IV tPA due to being outside the time window. - IV-tPA Administration Patient is a candidate for thrombolytic therapy: No If not a candidate for thrombolytic,contraindication include: Outside the 4.5 hour time window. tPA total dose in mg (MAX: 90 mg): [id number] Plan: 1. Telemetry 2. MRI brain without contrast 3. EEG awake and drowsy for 1 hour 4. Echocardiogram 5. Infectious work-up, HbA1c, Lipid panel, B12, folate, TSH, T3, vitamin D levels 6. Aspirin 81 mg daily in addition to cilostazol 100 mg BID 7. PT/OT eval and treatment 8. Fluids with NS at 100 mL/hr TeleStroke Disposition - Communication Case discussed with: ED Physician - Call Call Start Date: 06/17/18 Phone Call Start Time: 13:30 - Video Video Start Date: 06/17/18 Video Start Time: 13:40 - Evaluation Total Evaluation Time Spent (minutes): 35
[2018-06-17] MEDS: Sodium Chloride 0.9% 1,000 ML IV SCH ×2 (14:10→22:46)
--- NOTE | 2018-06-17 14:23 | CT ---
Date of service: 06/17/2018 PROCEDURE: CT Angiography of the neck and brain with contrast HISTORY: code stroke COMPARISON: Code stroke comparison made with concurrent CT scan brain TECHNIQUE: Contiguous axial images of the neck were obtained from the level of the vertex of the skull to the superior mediastinum in the arteriographic phase of enhancement. Coronal and sagittal reformats or also generated. IV contrast dose: 85 cc Visipaque 320 contrast material Radiation dose: Total exam DLP = 709.31 mGy-cm. This CT exam was performed using one or more of the following dose reduction techniques: Automated exposure control, adjustment of the mA and/or kV according to patient size, and/or use of iterative reconstruction technique. FINDINGS: The aortic arch widely patent despite some minor calcified atherosclerotic plaque. Minimal calcified plaque seen at the origin of the left subclavian artery. The common carotid arteries included carotid bifurcations widely patent despite some very tiny calcified plaque seen bilaterally left slightly larger than right. The visualized distal internal carotid arteries including the petrous cavernous and supraclinoid segments are patent however there are minor partially calcified atherosclerotic plaque changes seen at both carotid siphons. The vertebral arteries are patent throughout, right-sided which is only minimally larger in caliber/more dominant than the left side. Basilar artery patent as well. The visualized major branches of the [id number] are patent. Distal branches of the anterior middle and posterior cerebral arteries are patent and relatively symmetric so far as can be seen. No evidence of large aneurysm nor vascular malformation. OTHER FINDINGS: Note made of small amount of air within the right and left jugular veins and right subclavian vein likely due to intravenous injection. Note made of mild passive/dependent type atelectasis seen both posterior upper and lower lobes. IMPRESSION: Very minor calcified plaque changes seen at both carotid bifurcations and carotid siphons. No evidence of dissection occlusion or significant stenosis. No evidence of large aneurysm nor vascular malformation.
[2018-06-17 15:13] VITALS: RESP 20
--- NOTE | 2018-06-17 15:28 | RAD ---
Date of service: 06/17/2018 HISTORY: Code Stroke COMPARISON: Comparison chest 11/02/2017. FINDINGS: LUNGS: Minor bibasilar atelectasis left greater than right. PLEURA: No significant pleural effusion identified, no pneumothorax apparent. CARDIOVASCULAR: No aortic atherosclerotic calcification present. Heart appears mildly enlarged no pulmonary vascular congestion. OSSEOUS STRUCTURES: No significant abnormalities. VISUALIZED UPPER ABDOMEN: Normal. OTHER FINDINGS: None. IMPRESSION: Minor bibasilar atelectasis left greater than right.
[2018-06-17] MEDS: Cilostazol 100 mg Tab UD PO SCH (20:00)
[2018-06-18] MEDS: Sodium Chloride 0.9% 1,000 ML IV SCH ×6 (04:00→21:40)
[2018-06-18] MEDS: Levothyroxine 75 MCG TAB PO SCH (05:46)
[2018-06-18 09:06] LABS: T3 1.49 nmol/L (1.49-2.60)
[2018-06-18 09:40] LABS: FOLATE > 20.0 ng/mL
[2018-06-18] MEDS: Multiple Vitamins Tab PO SCH (10:32)
[2018-06-18] MEDS: Cilostazol 100 mg Tab UD PO SCH ×2 (10:32→21:39)
--- NOTE | 2018-06-19 02:24 | PN ---
DATE: 06/18/2018 SUBJECTIVE: The patient was seen and examined on the bedside on 06/18/2018. Looking little bit better, saying few words. No fever. No chills. No headache. No dizziness. No chest pain. No palpitation. PHYSICAL EXAMINATION: VITAL SIGNS: Temperature 98.4, pulse 88, blood pressure 114/70, respiratory rate 20, pulse oximetry 94%. HEENT: Head normocephalic, atraumatic. Eyes closed. Nose is patent. Mucous membranes moist. NECK: Supple. No carotid bruit, JVD, or thyromegaly. CHEST: Bilaterally symmetrical. HEART: S1 and S2 positive. LUNGS: Clear to auscultation. ABDOMEN: Soft. Bowel sounds positive. No organomegaly. EXTREMITIES: No edema. No cyanosis. NEUROLOGICAL: The patient is awake and alert. Responses are better. MEDICATIONS: Crestor, Ecotrin, Flomax, multivitamin, Pletal, NS, levothyroxine. LABORATORY DATA: White blood cells 4.3, hemoglobin 14.1, hematocrit 42.8, platelets 108. Sodium 143, potassium 3.7, BUN 8, creatinine 0.8, glucose 124. ASSESSMENT AND PLAN: Mr. Bib Joseph is a 62-year-old male with leukopenia; low carbon dioxide; hyperglycemia; history of hypothyroidism, on levothyroxine; history of multiple time strokes; hypercholesterolemia, getting Crestor; benign prostatic hypertrophy, getting Flomax; peripheral vascular disease, getting Pletal, got NS; history of multiple strokes, came with change in the status, seen by Dr. Thierry Bunn, patient's neurologist. The patient has indreased gradual weakness in the extremities . CAT scan of the head done. Uses continuous positive airway pressure at night. Left-sided weakness, history of double vision. Discussion done with Dr. Thierry Bunn, with decreased intravenous fluid, swallowing evaluation. Gastrointestinal and deep venous thrombosis prophylaxis. Repeat labs. We will follow up. Suzanne Jones MD [email or web address]
--- NOTE | 2018-06-19 06:08 | HP ---
CHIEF COMPLAINT: Slurring of speech, worsening gait. HISTORY OF PRESENT ILLNESS: Mr. Bib Joseph is a 62-year-old male brought to the emergency room for worsening slurring of speech and worsening of gait. The patient has history of CVA at least 9 to 10 times as per , last one was in 10/2017. The patient has slurry speech, right lower extremity weakness with abnormal gait and multiple left facial droop. The patient was last seen yesterday around 9 p.m. and went to bed. This morning, the patient was in the bed until 10 am, when his daughter noticed that he was dragging in his right foot and had more slurring of speech than usual. The daughter was prompted to call ambulance. But no fever, no chills, no hematuria, hematochezia. The patient is a poor historian. was sitting on the bedside. She give us history. PAST MEDICAL HISTORY: Depression, hypertension, hypercholesterolemia, hypothyroidism, sleep apnea, and history of strokes multiple times, aphasia. FAMILY HISTORY: Father and mother, noncontributory. HABITS: History of former smoker, now no smoking. No drugs. No ethanol. MEDICATIONS: Home medications are reviewed by me. ALLERGIES: THE PATIENT IS NOT ALLERGIC WITH ANY MEDICATION. REVIEW OF SYSTEMS: The patient is aphasic, is not able to give review of systems. is sitting at the bedside. Looks like he is not in distress. No fever. No chills. No hematuria. No hematochezia. Does not look like in headache. PHYSICAL EXAMINATION: VITAL SIGNS: Temperature 98.5, pulse 105, respiratory rate 20, blood pressure 140/90, pulse oxygen saturation 99%. HEENT: Head is normocephalic and atraumatic. Eyes PERRLA. Extraocular muscles intact. Conjunctivae clear. Nose patent. Mucous membranes moist. NECK: Supple. No carotid bruit. No JVD or thyromegaly. CHEST: Bilaterally symmetrical. HEART: S1, S2 positive. LUNGS: Clear to auscultation. ABDOMEN: Soft. Bowel sounds present. No organomegaly. EXTREMITIES: No edema. No cyanosis. NEUROLOGIC:awake and allert LABORATORY DATA: CT of the head and neck done showed very minor calcified plaque seen in both carotid bifurcation and carotid franco. No evidence of occlusion, or significant stenosis. No evidence of aneurysm or vascular malformation. CAT scan of the head is noted by me also. ASSESSMENT AND PLAN: The patient is admitted for worsening of speech and ataxia. The patient was seen by Dr. Thierry Bunn. Ordered labs. Started aspirin, Flomax, rule out benign prostatic hypertrophy. Gastrointestinal and deep venous thrombosis prophylaxis. We will do MRI of the head. We will follow up. Suzanne Jones MD MTDD
[2018-06-19] MEDS: Levothyroxine 75 MCG TAB PO SCH (06:39)
[2018-06-19] MEDS: Sodium Chloride 0.9% 1,000 ML IV SCH ×2 (06:48→16:20)
[2018-06-19] MEDS: Multiple Vitamins Tab PO SCH (10:15)
[2018-06-19] MEDS: Cilostazol 100 mg Tab UD PO SCH ×2 (10:15→17:53)
--- NOTE | 2018-06-19 13:09 | MRI ---
Date of service: 06/19/2018 PROCEDURE: MRI BRAIN WITHOUT CONTRAST HISTORY: Acute encephalopathy COMPARISON: CT head without contrast from 06/17/2018 and MRI brain without contrast from 11/02/2017. TECHNIQUE: Multiplanar, multisequence MR images of the brain were obtained without intravenous contrast enhancement. FINDINGS: HEMORRHAGE: There are multiple supra and infratentorial as well as punctate foci of increased magnetic susceptibility as well as in the brainstem. DWI: No evidence of an acute or early subacute infarction. BRAIN PARENCHYMA: Since the prior examination, there is no significant interval change in extensive chronic subcortical and deep periventricular white matter changes including involvement of the temporal lobes. There are multi focal chronic lacunar infarctions in bilateral centrum semiovale, roldan radiata, periventricular white matter, bilateral basal ganglia, right thalamus, franco and bilateral cerebellar hemispheres. There is redemonstration of a chronic infarction in the left posterior parietal lobe. This is there are scattered T2 hypointense foci corresponding to the areas of increased magnetic susceptibility consistent with old petechial hemorrhage. VENTRICLES: There is mild age-related global parenchymal volume loss and proportionate enlargement of the ventricles and cortical sulci. CRANIUM: There is normal bone marrow signal pattern. ORBITS: Grossly unremarkable. PARANASAL SINUSES/MASTOIDS: There is mild mucosal thickening in the paranasal sinuses and retention cysts/polyps in the right maxillary sinus. The mastoid air cells are clear. VASCULAR SYSTEM: There are normal signal voids in the larger intracranial arteries. OTHER FINDINGS: None. IMPRESSION: No acute intracranial abnormality. Redemonstration of extensive periventricular and subcortical white matter changes including involvement of the temporal lobe and multifocal petechial hemorrhage throughout the cerebral and cerebellar hemisphere and in the brainstem. 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 The other differential considerations include severe chronic microangiopathic changes, hypertensive small-vessel disease and hemorrhage, CADASIL, multiple petechial hemorrhage scan also be seen with familial multiple cavernous malformations, and sequela of prior radiation therapy amongst others.
--- NOTE | 2018-06-19 14:22 | CARD ---
APPROVED REPORT Date of service: 06/17/2018 EKG Measurement Heart [id number] <Conclusion> Normal sinus rhythm Normal ECG
--- NOTE | 2018-06-19 15:13 | CP.PCM.PN ---
Subjective - Date & Time of Evaluation Date of Evaluation: 06/19/18 Time of Evaluation: 15:10 - Subjective Subjective: Neuro Follow-Up Note: Mr. Joseph was evaluated this afternoon at bedside. Daughter present, who states that pt is more sleepy today than yesterday. Daughter admits that the pt has sleep apnea; no bipap or c-pap machine noted at bedtime (family also requesting for one not to be brought to bedside as pt is noncompliant with it at home). Pt is asleep but is easily arousable to voice. Denies any complaints and states that he feels well. Objective - Vital Signs/Intake and Output Vital Signs (last 24 hours): Temp Pulse Resp BP Pulse Ox 98.2 F 120 H 20 138/83 97 06/19/18 07:00 06/19/18 12:46 06/19/18 07:00 06/19/18 07:00 06/19/18 07:00 Intake and Output: 06/19/18 06/19/18 06:59 18:59 Intake Total 1020 Output Total 800 Balance 220 - Medications Medications: Current Medications Aspirin (Ecotrin) 81 mg PO DAILY [facility] Last Admin: 06/19/18 10:16 Dose: 81 mg Cilostazol (Pletal) 100 mg PO BID [facility] Last Admin: 06/19/18 10:15 Dose: 100 mg Docusate Sodium (Colace) 100 mg PO BID [facility] Last Admin: 06/19/18 13:06 Dose: 100 mg Sodium Chloride (Sodium Chloride 0.9%) 1,000 mls @ 50 mls/hr IV .Q20H [facility] Last Admin: 06/19/18 06:48 Dose: 50 mls/hr Lactulose (Enulose) 20 gm PO ONCE ONE Stop: 06/19/18 18:01 Levothyroxine Sodium (Synthroid) 75 mcg PO DAILY@0630 [facility] Last Admin: 06/19/18 06:39 Dose: 75 mcg Multivitamins (Hexavitamin) 1 tab PO DAILY [facility] Last Admin: 06/19/18 10:15 Dose: 1 tab Rosuvastatin Calcium (Crestor) 20 mg PO HS [facility] Last Admin: 06/18/18 21:41 Dose: 20 mg Tamsulosin HCl (Flomax) 0.4 mg PO DAILY [facility] Last Admin: 06/19/18 10:16 Dose: 0.4 mg - Labs Labs: 06/17/18 13:08 06/17/18 13:08 PT 13.1 SECONDS (9.7-12.2) H 06/17/18 13:08 INR 1.2 06/17/18 13:08 APTT 30 SECONDS (21-34) 06/17/18 13:08 - Constitutional Appears: No Acute Distress, Other (asleep but easily arousable to voice) - Head Exam Head Exam: NORMAL INSPECTION, NORMOCEPHALIC - Eye Exam Eye Exam: EOMI, Normal appearance, PERRL Pupil Exam: NORMAL ACCOMODATION, PERRL - ENT Exam ENT Exam: Mucous Membranes Moist - Neck Exam Neck Exam: Full ROM, Normal Inspection - Respiratory Exam Respiratory Exam: NORMAL BREATHING PATTERN - Extremities Exam Extremities Exam: Full ROM. absent: Calf Tenderness, Pedal Edema - Neurological Exam Neurological Exam: Alert, CN II-XII Intact, Oriented x3 Neuro motor strength exam: Left Upper Extremity: 5, Right Upper Extremity: 5, Left Lower Extremity: 4, Right Lower Extremity: 4 Additional comments: Slight slurring to speech but not a new finding per daughter Asleep but easily arousable to voice Some weakness to BLE but + FROM No drift noted No tremors Sensation intact Gait not assessed - Psychiatric Exam Psychiatric exam: Normal Affect, Normal Mood - Skin Skin Exam: Normal Color Assessment and Plan (1) Acute encephalopathy Assessment & Plan: Imaging reviewed: -Brain MRI (06/19/18): No acute intracranial abnormality. Redemonstration of extensive periventricular and subcortical white matter changes including involvement of the temporal lobe and multifocal petechial hemorrhage throughout the cerebral and cerebellar hemisphere and in the brainstem. 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 The other differential considerations i nclude severe chronic microangiopathic changes, hypertensive small-vessel disease and hemorrhage, CADASIL, multiple petechial hemorrhage scan also be seen with familial multiple cavernous malformations, and sequela of prior radiation therapy amongst others. -CTA Head and Neck (06/17/18): Very minor calcified plaque changes seen at both carotid bifurcations and carotid siphons. No evidence of dissection occlusion or significant stenosis. No evidence of large aneurysm nor vascular malformation. -CT Head (06/17/18): No acute intracranial hemorrhage. Previously noted numerous hemosiderin deposits scattered throughout both cerebral, cerebellar hemispheres as well as basal nuclei and brainstem less well seen on this exam as compared to high-resolution MRI. Significant chronic white matter ischemic changes with as multiple bilateral basal nuclei, and cerebellar and brainstem ischemic changes. Findings may represent underlying CADASIL should also be considered given the patient's history of same. Note that the possibility of a small hyperacute infarct cannot be excluded on this exam. Moderate central volume loss. -EEG for 1 hour ordered--will f/u with results once done. -Continue current treatment, including ASA, Cilostazol, and Statin. -PT/OT/ST; recommend SHERMAN which family is in agreement with. -Recommend BiPap or C-Pap machine at bedside for his sleep apnea; this may be contributing to his changes in mental status and increased sleepiness (notified Joseph CHOWDHURY of this). -Notify Neuro team of any acute changes in pt's condition. Cassie Starr DNP, APN Case discussed with Dr. Bunn Status: Acute NIHSS Stroke Scale - Date/Time Evaluation Performed Date Performed: 06/19/18 Time Performed: 16:32 When Was NIHSS Performed: Re-evaluation - How Severe is the Stroke Level of Consciousness: 0=Alert LOC to Questions: 0=Both comments correct LOC to commands: 0=Obeys both correctly Best Gaze: 0=Normal Visual: 0=No visual loss Facial: 0=Normal Motor Arm - Left: 0=No drift Motor Arm - Right: 0=No drift Motor Leg - Left: 0=No drift Motor Leg - Right: 0=No drift Limb Ataxia: 0=Absent Sensory: 0=Normal Best Language: 1=Mild to moderate aphasia Dysarthia: 1=Mild to moderate slurring Extinction & Inattention (Neglect): 0=Normal, no object Score: 2
--- NOTE | 2018-06-19 18:13 | CARD ---
APPROVED REPORT Date of service: 06/19/2018 EXAM: Two-dimensional and M-mode echocardiogram with Doppler and color Doppler. Other Information Quality : GoodRhythm : INDICATION CVA/TIA RISK FACTORS Hypertension Hyperlipidemia 2D DIMENSIONS IVSd1.2 (0.7-1.1cm)Aortic Root (2D)3.7 (2.0-3.7cm) LVDd3.2 (3.9-5.9cm)PWd1.4 (0.7-1.1cm) LA Bbthkw99 (18-58mL)LVDs1.8 (2.5-4.0cm) FS (%) 43.9 %LVEF (%)70.0 (>50%) LVEF (Lopez's)67.14 %IVC0.00 cm M-Mode DIMENSIONS Left Atrium (MM)3.26 (2.5-4.0cm)Aortic Root3.90 (2.2-3.7cm) Aortic Cusp Exc.1.80 (1.5-2.0cm) Mitral Valve MV E Sjpvfgiv07.4cm/sMV A Gfwlkwbw677.2cm/sE/A ratio0.4 TDI Lateral E' Peak V9.41cm/sMedial E' Peak V9.59cm/sE/Lateral E'5.1 E/Medial E'5.0 Tricuspid Valve TR Peak Qlwfcvka803uk/sTR Peak Gr.8tfFeHNXM1taSi LEFT VENTRICLE The left ventricle is normal size. There is mild concentric left ventricular hypertrophy. The left ventricular function is normal. The left ventricular ejection fraction is within the normal range. 76% No regional wall motion abnormalities noted. The left ventricular diastolic function is abnormal, type I No left ventricle thrombus noted on this study. There is no ventricular septal defect visualized. There is no left ventricular aneurysm. There is no mass noted in the left ventricle. RIGHT VENTRICLE The right ventricle is normal size. There is normal right ventricular wall thickness. The right ventricular systolic function is normal. ATRIA The left atrium size is normal. The right atrium size is normal. The interatrial septum is intact with no evidence for an atrial septal defect. AORTIC VALVE The aortic valve is normal in structure and function. No aortic regurgitation is present. There is no aortic valvular stenosis. There is no aortic valvular vegetation. MITRAL VALVE The mitral valve is normal in structure and function. There is no evidence of mitral valve prolapse. There is no mitral valve stenosis. There is no mitral valve regurgitation noted. TRICUSPID VALVE The tricuspid valve is normal in structure and function. There is no tricuspid valve regurgitation noted. There is no tricuspid valve prolapse or vegetation. There is no tricuspid valve stenosis. PULMONIC VALVE The pulmonary valve is normal in structure and function. There is no pulmonic valvular regurgitation. There is no pulmonic valvular stenosis. GREAT VESSELS The aortic root is normal in size. The ascending aorta is normal in size. The pulmonary artery is normal. The IVC is normal in size and collapses >50% with inspiration. PERICARDIAL EFFUSION The pericardium appears normal. There is no pleural effusion. <Conclusion> The left ventricular function is normal. There is mild concentric left ventricular hypertrophy. The left ventricular diastolic function is abnormal, type I Normal Doppler.
[2018-06-20] MEDS: Sodium Chloride 0.9% 1,000 ML IV SCH ×2 (04:17→13:50)
[2018-06-20] MEDS: Levothyroxine 75 MCG TAB PO SCH (06:53)
--- NOTE | 2018-06-20 07:33 | PN ---
DATE: 06/19/2018 SUBJECTIVE: The patient is a 52-year-old male. The patient was seen and examined at the bedside on 06/19/2018, looking comfortable. No fever. No chills. No headache. No dizziness. The patient is noncompliant with BiPAP and CPAP. Denies any fever, chills, hematuria, hematochezia. PHYSICAL EXAMINATION: VITAL SIGNS: Temperature 98.2, pulse 120, respiratory rate 20, blood pressure 140/80, pulse oximetry 97. HEENT: Head: Normocephalic, atraumatic. Eyes: PERRLA. Extraocular muscles intact. Conjunctivae clear. Nose patent. NECK: Supple. No carotid bruit, JVD, or thyromegaly. CHEST: Bilaterally symmetrical. HEART: S1, S2 positive. LUNGS: Clear to auscultation. ABDOMEN: Soft. Bowel sounds present. No organomegaly. EXTREMITIES: No edema. No cyanosis. NEUROLOGIC: The patient is awake and alert. MEDICATIONS: Ecotrin, Pletal, Colace, Enulose, Synthroid, multivitamins, Crestor, Flomax. LABORATORY DATA: White blood cell 4.2, hemoglobin 14.1, hematocrit 42.2, platelets 108. Sodium 143, potassium 3.7, BUN 8, creatinine 0.8, glucose 124. ASSESSMENT AND PLAN: The patient is a 52-year-old male with leukopenia, thrombocytopenia, hyperglycemia; went for MRI today, shows no acute intracranial abnormalities, CAT scan noted also. The patient has multiple strokes, history of obstructive sleep apnea as per family. History of leukopenia, hypothyroidism, on levothyroxine; hypercholesterolemia, getting Crestor; benign prostatic hypertrophy, getting Flomax. Peripheral vascular disease, he is on Pletal. Went for MRI and echo today. Neurologist is on the case. Gastrointestinal and deep venous thrombosis prophylaxis. Repeat labs. We will follow up. Suzanne Jones MD
[2018-06-20] MEDS: Cilostazol 100 mg Tab UD PO SCH ×2 (10:44→17:25)
[2018-06-20] MEDS: Multiple Vitamins Tab PO SCH (10:45)
--- NOTE | 2018-06-20 13:43 | CP.PCM.PN ---
Subjective - Date & Time of Evaluation Date of Evaluation: 06/20/18 Time of Evaluation: 13:41 - Subjective Subjective: Neuro Follow-Up Note: Mr. Joseph was evaluated this afternoon at bedside. Daughter present. Daughter states that the pt is more awake and alert today. Pt states that he feels good today and has no complaints. He denies h/a, dizziness, visual changes, chest pain, palpitations, sob, abd pain, paresthesias. Objective - Vital Signs/Intake and Output Vital Signs (last 24 hours): Temp Pulse Resp BP Pulse Ox 98.4 F 77 20 133/85 96 06/20/18 07:00 06/20/18 07:43 06/20/18 07:00 06/20/18 07:00 06/20/18 08:00 Intake and Output: 06/20/18 06/20/18 06:59 18:59 Intake Total 1100 Output Total 400 Balance 700 - Medications Medications: Current Medications Aspirin (Ecotrin) 81 mg PO DAILY [facility] Last Admin: 06/20/18 10:45 Dose: 81 mg Cilostazol (Pletal) 100 mg PO BID [facility] Last Admin: 06/20/18 10:44 Dose: 100 mg Docusate Sodium (Colace) 100 mg PO BID [facility] Last Admin: 06/20/18 10:44 Dose: 100 mg Sodium Chloride (Sodium Chloride 0.9%) 1,000 mls @ 50 mls/hr IV .Q20H [facility] Last Admin: 06/20/18 04:17 Dose: 50 mls/hr Levothyroxine Sodium (Synthroid) 75 mcg PO DAILY@0630 [facility] Last Admin: 06/20/18 06:53 Dose: 75 mcg Multivitamins (Hexavitamin) 1 tab PO DAILY [facility] Last Admin: 06/20/18 10:45 Dose: 1 tab Rosuvastatin Calcium (Crestor) 20 mg PO HS [facility] Last Admin: 06/19/18 21:07 Dose: 20 mg Tamsulosin HCl (Flomax) 0.4 mg PO DAILY [facility] Last Admin: 06/20/18 10:45 Dose: 0.4 mg - Labs Labs: 06/17/18 13:08 06/17/18 13:08 PT 13.1 SECONDS (9.7-12.2) H 06/17/18 13:08 INR 1.2 06/17/18 13:08 APTT 30 SECONDS (21-34) 06/17/18 13:08 - Constitutional Appears: Well, Non-toxic, No Acute Distress - Head Exam Head Exam: ATRAUMATIC, NORMAL INSPECTION, NORMOCEPHALIC - Eye Exam Eye Exam: EOMI, Normal appearance, PERRL Pupil Exam: NORMAL ACCOMODATION, PERRL - ENT Exam ENT Exam: Mucous Membranes Moist - Neck Exam Neck Exam: Full ROM, Normal Inspection - Respiratory Exam Respiratory Exam: NORMAL BREATHING PATTERN - Extremities Exam Extremities Exam: Full ROM. absent: Calf Tenderness, Pedal Edema - Neurological Exam Neurological Exam: Alert, Awake, CN II-XII Intact Neuro motor strength exam: Left Upper Extremity: 5 (broadcast operations manager 5/5), Right Upper Extremity: 5 (broadcast operations manager 5/5), Left Lower Extremity: 4 (plantar flexion 4/5), Right Lower Extremity: 4 (plantar flexion 4/5) Additional comments: Slight slurring to speech but not a new finding per daughter Awake, more alert compared to yesterday Still has some weakness to BLE but + FROM No drift noted No tremors Sensation intact Gait not assessed - Psychiatric Exam Psychiatric exam: Normal Affect, Normal Mood - Skin Skin Exam: Normal Color Assessment and Plan (1) Acute encephalopathy Assessment & Plan: Imaging reviewed: -Brain MRI (06/19/18): No acute intracranial abnormality. Redemonstration of extensive periventricular and subcortical white matter changes including involvement of the temporal lobe and multifocal petechial hemorrhage throughout the cerebral and cerebellar hemisphere and in the brainstem. 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 The other differential considerations include severe chronic microangiopathic changes, hypertensive small-vessel disease and hemorrhage, CADASIL, multiple petechial hemorrhage scan also be seen with familial multiple cavernous malformations, and sequela of prior radiation therapy amongst others. -CTA Head and Neck (06/17/18): Very minor calcified plaque changes seen at both carotid bifurcations and carotid siphons. No evidence of dissection occlusion or significant stenosis. No evidence of large aneurysm nor vascular malformation. -CT Head (06/17/18): No acute intracranial hemorrhage. Previously noted numerous hemosiderin deposits scattered throughout both cerebral, cerebellar hemispheres as well as basal nuclei and brainstem less well seen on this exam as compared to high-resolution MRI. Significant chronic white matter ischemic changes with as multiple bilateral basal nuclei, and cerebellar and brainstem ischemic changes. Findings may represent underlying CADASIL should also be considered given the patient's history of same. Note that the possibility of a small hyperacute infarct cannot be excluded on this exam. Moderate central volume loss. -EEG done---will f/u with results. Pt can be cleared from neuro standpoint if negative. -Continue current treatment, including ASA, Cilostazol, and Statin. -PT/OT/ST; recommend SHERMAN for 1-2 weeks max (daughter requesting 2 weeks max). -Dr. Grover consulted for sleep apnea management. -Pt has a follow up appt with Dr. Bunn in the office on 07/05/18 at 4 pm. -Notify neuro team of any acute changes in pt's condition. Cassie Starr DNP, [employer] Case discussed with Dr. Bunn Status: Acute
--- NOTE | 2018-06-20 15:35 | CP.PCM.CON ---
History of Present Illness - History of Present Illness History of Present Illness: Patient is a 62 year old male with a PMHx of CVA, aphasia, HTN who presented to the ED for worsening slurring of speech and worsening gait. We were consulted for BRYON Patient was seen and examined Patient resting comfertably in bed Patient refuses machine at home for BRYON and in hospital Afebrile Denies cp, sob, fever, chills PMHx: Depression, HTN, Hypercholesterolemia, hypothyroidism, BRYON, multiple CVA, aphasia PSHx: Allergies: NKDA Social: former smoker, denies EtOH and illicit drug use . Meds: as per emr Physical Exam Gen: AAOx3, anxious Cardio:RRR, no murmur Pulm: lungs clear to auscultation bilaterally GI:soft, nontender A/P BRYON -follow up out patient -schedule for sleep study outpatient -patient refuses to use CPAP device. Possibly consider a mandible device. -encourage CPaP use at night Past Patient History - Infectious Disease Hx of Infectious Diseases: None - Tetanus Immunizations Tetanus Immunization: Unknown - Past Medical History & Family History Past Medical History?: Yes - Past Social History Smoking Status: Former Smoker - CARDIAC Hx Hypercholesterolemia: Yes Hx Hypertension: Yes - PULMONARY Hx Sleep Apnea: Yes (Uses C-PAP HS) - NEUROLOGICAL HX Cerebrovascular Accident: Yes (left sided weakness) Other/Comment: CADASIL SYNDROME. Hx of multiple CVAs past with last one as of October 2017 - HEENT Hx HEENT Problems: Yes Other/Comment: left eye double vision late 1997 - RENAL Hx Chronic Kidney Disease: No - ENDOCRINE/METABOLIC Hx Hypothyroidism: Yes - HEMATOLOGICAL/ONCOLOGICAL Hx Human Immunodeficiency Virus (HIV): No - INTEGUMENTARY Hx Dermatological Problems: No - MUSCULOSKELETAL/RHEUMATOLOGICAL Hx Falls: No - GASTROINTESTINAL Hx Gastrointestinal Disorders: Yes - GENITOURINARY/GYNECOLOGICAL Hx Genitourinary Disorders: No - PSYCHIATRIC Hx Substance Use: No - SURGICAL HISTORY Hx Musculoskeletal Surgery: Yes ([employer].) - ANESTHESIA Hx Anesthesia: Yes Hx Anesthesia Reactions: No Hx Malignant Hyperthermia: No Meds Allergies/Adverse Reactions: Allergies Allergy/AdvReac Type Severity Reaction Status Date / Time No Known Allergies Allergy Verified 06/17/18 13:10 - Medications Medications: Current Medications Aspirin (Ecotrin) 81 mg PO DAILY [facility] Last Admin: 06/20/18 10:45 Dose: 81 mg Cilostazol (Pletal) 100 mg PO BID [facility] Last Admin: 06/20/18 10:44 Dose: 100 mg Docusate Sodium (Colace) 100 mg PO BID [facility] Last Admin: 06/20/18 10:44 Dose: 100 mg Sodium Chloride (Sodium Chloride 0.9%) 1,000 mls @ 50 mls/hr IV .Q20H [facility] Last Admin: 06/20/18 13:50 Dose: Not Given Levothyroxine Sodium (Synthroid) 75 mcg PO DAILY@0630 [facility] Last Admin: 06/20/18 06:53 Dose: 75 mcg Multivitamins (Hexavitamin) 1 tab PO DAILY [facility] Last Admin: 06/20/18 10:45 Dose: 1 tab Rosuvastatin Calcium (Crestor) 20 mg PO HS [facility] Last Admin: 06/19/18 21:07 Dose: 20 mg Tamsulosin HCl (Flomax) 0.4 mg PO DAILY [facility] Last Admin: 06/20/18 10:45 Dose: 0.4 mg Results - Vital Signs Recent Vital Signs: Last Vital Signs Temp 98.4 F 06/20/18 07:00 Pulse 77 06/20/18 07:43 Resp 20 06/20/18 07:00 BP 133/85 06/20/18 07:00 Pulse Ox 96 06/20/18 08:00 - Labs Result Diagrams: 06/17/18 13:08 06/17/18 13:08
--- NOTE | 2018-06-20 17:03 | CP.PCM.PN ---
Subjective - Date & Time of Evaluation Date of Evaluation: 06/20/18 Time of Evaluation: 13:00 - Subjective Subjective: patient seen this am , asleep arousable, comfortable vss and labs reviewed - stable Objective - Vital Signs/Intake and Output Vital Signs (last 24 hours): Temp Pulse Resp BP Pulse Ox 98.5 F 102 H 20 112/80 93 L 06/20/18 15:33 06/20/18 15:33 06/20/18 15:33 06/20/18 15:33 06/20/18 15:33 Intake and Output: 06/20/18 06/20/18 06:59 18:59 Intake Total 1100 600 Output Total 400 700 Balance 700 -100 - Medications Medications: Current Medications Aspirin (Ecotrin) 81 mg PO DAILY [facility] Last Admin: 06/20/18 10:45 Dose: 81 mg Cilostazol (Pletal) 100 mg PO BID [facility] Last Admin: 06/20/18 10:44 Dose: 100 mg Docusate Sodium (Colace) 100 mg PO BID [facility] Last Admin: 06/20/18 10:44 Dose: 100 mg Sodium Chloride (Sodium Chloride 0.9%) 1,000 mls @ 50 mls/hr IV .Q20H [facility] Last Admin: 06/20/18 13:50 Dose: Not Given Levothyroxine Sodium (Synthroid) 75 mcg PO DAILY@0630 [facility] Last Admin: 06/20/18 06:53 Dose: 75 mcg Multivitamins (Hexavitamin) 1 tab PO DAILY [facility] Last Admin: 06/20/18 10:45 Dose: 1 tab Rosuvastatin Calcium (Crestor) 20 mg PO HS [facility] Last Admin: 06/19/18 21:07 Dose: 20 mg Tamsulosin HCl (Flomax) 0.4 mg PO DAILY [facility] Last Admin: 06/20/18 10:45 Dose: 0.4 mg - Labs Labs: 06/17/18 13:08 06/17/18 13:08 PT 13.1 SECONDS (9.7-12.2) H 06/17/18 13:08 INR 1.2 06/17/18 13:08 APTT 30 SECONDS (21-34) 06/17/18 13:08 Assessment and Plan - Assessment and Plan (Free Text) Assessment: 62 yr old male with pmhx of HTN, Hypercholesterolemia, Hypothyroidism, Sleep Apnea admitted for for worsening slurred speech and worsening gait ( confusion with acute encephalopathy) pHYSICAL THERAPY seen patient and pt presents w/ severe impairment of functional mobility and transfers,and recommends skilled PT to improve mobility and maximize functional independence. Dr. Bunn neurology on board also recommends PT/OT for functional independence D/W Dr. Nicole patient require inpatient admission due to the severity of symptoms and other commodities SW will discuss family regarding SHERMAN
[2018-06-21] MEDS: Levothyroxine 75 MCG TAB PO SCH (06:34)
[2018-06-21] MEDS: Multiple Vitamins Tab PO SCH (09:54)
[2018-06-21] MEDS: Cilostazol 100 mg Tab UD PO SCH ×2 (09:54→17:26)
--- NOTE | 2018-06-21 15:06 | PN ---
DATE: 06/20/2018 SUBJECTIVE: The patient was seen and examined at bedside on 06/20/2018. The patient is looking comfortable. No change in the status. The patient is not able to give full review of systems. comfortable looking. No fevers, no chills, no hematuria, no hematochezia, no headache, no dizziness, no chest pain, no palpitation. PHYSICAL EXAMINATION: VITAL SIGNS: Temperature 98.4, pulse 77, respirations 20, blood pressure 133/85, pulse oximetry 96%. HEENT: Head normocephalic, atraumatic. Eyes: PERRLA. Extraocular muscles intact. Conjunctivae clear. Nose patent. Mucous membranes moist. NECK: Supple. No carotid bruit. No JVD. No thyromegaly. CHEST: Bilaterally symmetrical. HEART: S1, S2 positive. LUNGS: Clear to auscultation. ABDOMEN: Soft. Bowel sounds present. No organomegaly. EXTREMITIES: No edema. No cyanosis. NEUROLOGIC: The patient is awake and alert, but is not able to follow the commands. LABORATORY DATA: White blood cell count 4.2, hemoglobin 14.1, hematocrit 42.8, platelets 108. Sodium 146, potassium 3.7, BUN is 13.8, glucose 124. ASSESSMENT AND PLAN: Mr. Bib Joseph is a [id number] with leukopenia, thrombocytopenia, hyperglycemia, has history of multiple cerebrovascular accidents, aphasia, hypertension, came with worsening of speech and gait, improved. The patient has history of also sleep apnea, he had a BiPAP at home, the patient refuses the machine. Need follow up of obstructive sleep apnea as outpatient, refuses a CPAP device and, possibly consider mandibular device, encourage CPAP use at night. Neurologist is on the case. Need good physical therapy, is waiting for subacute rehab evaluation. We will follow up. Suzanne Jones MD [facility]
--- NOTE | 2018-06-21 18:21 | CP.PCM.PN ---
Subjective - Date & Time of Evaluation Date of Evaluation: 06/21/18 Time of Evaluation: 18:21 - Subjective Subjective: Pulmonary follow up, Covering Dr Grover The Patient was seen and examined at the bedside, Medical records reviewed, and management issues were discussed and formulated with the house staff. Events reviewed Patient is 62 with past years old male medical history hypertension, status post CVA with aphasia Who presented to emergency room with worsening slurred speech and worsening gait Patient currently managed for Acute encephalopathy Pulmonary consult requested for management of obstructive sleep apnea Patient is not using CPAP or BIPAP at home patient currently Awake, confused and intermittently follow simple commands Laying in comfortable in bed not in any apparent distress breathing is unlabored Objective - Vital Signs/Intake and Output Vital Signs (last 24 hours): Temp Pulse Resp BP Pulse Ox 98.9 F 99 H 20 141/80 96 06/21/18 15:33 06/21/18 15:33 06/21/18 15:33 06/21/18 15:33 06/21/18 15:33 Intake and Output: 06/21/18 06/21/18 06:59 18:59 Intake Total 720 Balance 720 - Medications Medications: Current Medications Aspirin (Ecotrin) 81 mg PO DAILY [facility] Last Admin: 06/21/18 09:54 Dose: 81 mg Cilostazol (Pletal) 100 mg PO BID [facility] Last Admin: 06/21/18 17:26 Dose: 100 mg Docusate Sodium (Colace) 100 mg PO BID [facility] Last Admin: 06/21/18 17:26 Dose: 100 mg Sodium Chloride (Sodium Chloride 0.9%) 1,000 mls @ 50 mls/hr IV .Q20H [facility] Last Admin: 06/20/18 13:50 Dose: Not Given Levothyroxine Sodium (Synthroid) 75 mcg PO DAILY@0630 [facility] Last Admin: 06/21/18 06:34 Dose: 75 mcg Multivitamins (Hexavitamin) 1 tab PO DAILY [facility] Last Admin: 06/21/18 09:54 Dose: 1 tab Rosuvastatin Calcium (Crestor) 20 mg PO HS [facility] Last Admin: 06/20/18 22:06 Dose: 20 mg Tamsulosin HCl (Flomax) 0.4 mg PO DAILY [facility] Last Admin: 06/21/18 09:54 Dose: 0.4 mg - Labs Labs: 06/17/18 13:08 06/17/18 13:08 PT 13.1 SECONDS (9.7-12.2) H 06/17/18 13:08 INR 1.2 06/17/18 13:08 APTT 30 SECONDS (21-34) 06/17/18 13:08 - Constitutional Appears: Well, Non-toxic, No Acute Distress - Head Exam Head Exam: ATRAUMATIC, NORMAL INSPECTION - ENT Exam ENT Exam: Mucous Membranes Moist, Normal Exam - Neck Exam Neck Exam: Full ROM, Normal Inspection. absent: Lymphadenopathy - Respiratory Exam Respiratory Exam: Clear to Ausculation Bilateral, NORMAL BREATHING PATTERN - Cardiovascular Exam Cardiovascular Exam: REGULAR RHYTHM, +S1, +S2. absent: Murmur - GI/Abdominal Exam GI & Abdominal Exam: Soft, Normal Bowel Sounds. absent: Tenderness - Neurological Exam Neurological Exam: Alert, Awake Assessment and Plan (1) BRYON (obstructive sleep apnea) Assessment & Plan: - Shedule for sleep study outpatient - Positional therapy, Avoidance of supine sleep may be helpful - Patient refuses to use CPAP device. - Encourage CPAP use at night - PRN albuterol. - A mandibular advancement splint (Dental Clinic referral), Provent therapy, or referral to an ENT surgeon for modification of the airway should be considered to reduce daytime somnolence and the potential contribution of BRYON on existing illnesses if the patient prefers an alternative therapy to CPAP or if the trial of CPAP is unsuccessful. Status: Acute (2) Acute encephalopathy Status: Acute (3) DVT prophylaxis Status: Acute
[2018-06-22] MEDS: Sodium Chloride 0.9% 1,000 ML IV SCH (00:21)
[2018-06-22] MEDS: Levothyroxine 75 MCG TAB PO SCH (07:01)
[2018-06-22] MEDS: Multiple Vitamins Tab PO SCH (09:10)
[2018-06-22] MEDS: Cilostazol 100 mg Tab UD PO SCH ×2 (09:10→17:46)
--- NOTE | 2018-06-22 10:48 | PN ---
DATE: 06/21/2018 SUBJECTIVE: The patient was seen and examined at bedside on 06/21/2018, looking comfortable. No change in the status. is at the bedside. Discussion done with . All records reviewed. Lab reviewed. Discussion done with nursing staff. No fevers, no chills, no hematuria, no hematochezia. PHYSICAL EXAMINATION: VITAL SIGNS: Temperature 98.9, pulse 99, respirations 20, blood pressure 140/80, pulse oximetry 96%. HEENT: Head normocephalic, atraumatic. Eyes: PERRLA. Extraocular muscles intact. Conjunctivae clear. Nose patent. NECK: Supple. No carotid bruit. No JVD. No thyromegaly. CHEST: Bilaterally symmetrical. HEART: S1, S2 positive. LUNGS: Clear to auscultation. ABDOMEN: Soft. Bowel sounds present. No organomegaly. EXTREMITIES: No edema. No cyanosis. NEUROLOGIC: The patient is awake, alert, follows simple commands. MEDICATIONS: Aspirin, Pletal, Colace, NS, levothyroxine, multivitamins, Crestor, Flomax. LABORATORY DATA: White blood cell count 4.3, hemoglobin 14.1, hematocrit 42.8, platelets 108. Sodium 143, potassium 3.7, BUN 8, creatinine 0.8, glucose 124. ASSESSMENT AND PLAN: Mr. Bib Joseph is a [id number] with peripheral vascular disease, hypothyroidism, hypercholesterolemia, benign prostatic hypertrophy, leukopenia, thrombocytopenia, hyperglycemia, history of multiple times strokes, came with new weakness, bedridden. The patient seen by neurologist. EEG normal. As per Dr. Farrell, the patient is clear neurology-quevdeo to discharge to [facility]. We will do followup as outpatient. The patient has appointment with Dr. Bunn on 07/07/2018. Appreciated Cassie Starr input, seen by Aurora Echeverria, nurse practitioner also. Getting gastrointestinal and deep vein thrombosis prophylaxis. Getting bedside physical therapy. EEG, MRI, CAT scan reviewed by me. For obstructive sleep apnea, Dr. Grover is on the case. Repeat labs. Discussion done with the . All questions answered. The patient is getting Flomax for benign prostatic hypertrophy, Crestor for hypercholesterolemia. We will follow up. Suzanne Jones MD [facility] # [id number]
--- NOTE | 2018-06-22 17:20 | CP.PCM.PN ---
Subjective - Date & Time of Evaluation Date of Evaluation: 06/22/18 Time of Evaluation: 17:17 - Subjective Subjective: Pulmonary follow up, Covering Dr Grover The Patient was seen and examined at the bedside, Medical records reviewed, and management issues were discussed and formulated with the house staff. Events reviewed Patient is 62 with past years old male medical history hypertension, status post CVA with aphasia Who presented to emergency room with worsening slurred speech and worsening gait Patient currently managed for Acute encephalopathy Pulmonary consult requested for management of obstructive sleep apnea Patient is not using CPAP or BIPAP at home patient currently Awake, confused and intermittently follow simple commands Laying in comfortable in bed not in any apparent distress breathing is unlabored Objective - Vital Signs/Intake and Output Vital Signs (last 24 hours): Temp Pulse Resp BP Pulse Ox 98 F 93 H 20 125/67 96 06/22/18 15:58 06/22/18 15:58 06/22/18 15:58 06/22/18 15:58 06/22/18 15:58 Intake and Output: 06/22/18 06/22/18 06:59 18:59 Intake Total 1250 Output Total 100 Balance 1150 - Medications Medications: Current Medications Aspirin (Ecotrin) 81 mg PO DAILY [facility] Last Admin: 06/22/18 09:10 Dose: 81 mg Cilostazol (Pletal) 100 mg PO BID [facility] Last Admin: 06/22/18 09:10 Dose: 100 mg Docusate Sodium (Colace) 100 mg PO BID [facility] Last Admin: 06/22/18 09:10 Dose: 100 mg Levothyroxine Sodium (Synthroid) 75 mcg PO DAILY@0630 [facility] Last Admin: 06/22/18 07:01 Dose: 75 mcg Multivitamins (Hexavitamin) 1 tab PO DAILY [facility] Last Admin: 06/22/18 09:10 Dose: 1 tab Rosuvastatin Calcium (Crestor) 20 mg PO HS [facility] Last Admin: 06/21/18 21:30 Dose: 20 mg Tamsulosin HCl (Flomax) 0.4 mg PO DAILY [facility] Last Admin: 06/22/18 09:10 Dose: 0.4 mg - Labs Labs: 06/17/18 13:08 06/17/18 13:08 PT 13.1 SECONDS (9.7-12.2) H 06/17/18 13:08 INR 1.2 06/17/18 13:08 APTT 30 SECONDS (21-34) 06/17/18 13:08 - Constitutional Appears: Well, Non-toxic, Confused, Chronically Ill - Head Exam Head Exam: ATRAUMATIC, NORMAL INSPECTION, NORMOCEPHALIC - Eye Exam Eye Exam: EOMI, Normal appearance Pupil Exam: NORMAL ACCOMODATION - ENT Exam ENT Exam: Mucous Membranes Moist, Normal Exam - Neck Exam Neck Exam: Normal Inspection - Respiratory Exam Respiratory Exam: Prolonged Expiratory Phase, Rhonchi, NORMAL BREATHING PATTERN. absent: Accessory Muscle Use, Clear to Ausculation Bilateral, Rales, Wheezes, Respiratory Distress - Cardiovascular Exam Cardiovascular Exam: REGULAR RHYTHM, +S1, +S2. absent: Murmur - GI/Abdominal Exam GI & Abdominal Exam: Soft, Normal Bowel Sounds. absent: Tenderness Assessment and Plan (1) BRYON (obstructive sleep apnea) Status: Acute (2) Acute encephalopathy Status: Acute (3) DVT prophylaxis Status: Acute - Assessment and Plan (Free Text) Assessment: - Shedule for sleep study outpatient - Positional therapy, Avoidance of supine sleep may be helpful - Patient refuses to use CPAP device. - Encourage CPAP use at night - PRN albuterol. - A mandibular advancement splint (Dental Clinic referral), Provent therapy, or referral to an ENT surgeon for modification of the airway should be considered to reduce daytime somnolence and the potential contribution of BRYON on existing illnesses if the patient prefers an alternative therapy to CPAP or if the trial of CPAP is unsuccessful. HOB maintained at 30 degrees. Aggressive pulmonary toilet Maintain aspiration precautions
[2018-06-23] MEDS: Levothyroxine 75 MCG TAB PO SCH (06:19)
[2018-06-23 06:53] LABS: HEMOGLOBIN 13.7 g/dL (12.0-18.0); MEAN CELL VOLUME 92.6 fL (80.0-94.0); MEAN CORPUSCULAR HGB CONC 33.5 g/dL (33.0-37.0); MEAN PLATELET VOLUME 10.2 fL (7.2-11.7); RBC 4.41 Mil/uL (4.40-5.90); RED CELL DISTRIBUTION WIDTH 13.9 % (11.5-14.5); WHITE BLOOD COUNT 4.8 K/uL (4.8-10.8)
[2018-06-23 07:47] LABS: ALB/GLOB RATIO 1.7 (1.0-2.1); ALT/SGPT 27 U/L (21-72); AST/SGOT 37 U/L (17-59); BLOOD UREA NITROGEN 11 mg/dL (9-20); CALCIUM 8.6 mg/dl (8.6-10.4); GFR NON-AFRICAN AMERICAN > 60
--- NOTE | 2018-06-23 07:47 | PN ---
DATE: 06/22/2018 SUBJECTIVE: The patient is a 52-year-old male. The patient was seen and examined at the bedside. Looking comfortable. No big change in the status. No headache. No dizziness. No hematuria. No hematochezia. The patient is aphasic, cannot give much review of systems. PHYSICAL EXAMINATION: VITAL SIGNS: Temperature 98, pulse 93, respiratory rate 20, blood pressure 125/67, pulse oxymetry 96%. HEENT: Head: Normocephalic and atraumatic. Eyes: PERRLA. Extraocular muscles intact. Conjunctivae clear. Nose patent. Mucous membranes moist. NECK: Supple. No carotid bruit. No JVD or thyromegaly. CHEST: Bilaterally symmetrical. HEART: S1 and S2 positive. LUNGS: Clear to auscultation. ABDOMEN: Soft. Bowel sounds present. No organomegaly. EXTREMITIES: No edema. No cyanosis. NEUROLOGIC: The patient is awake, alert but is aphasic. MEDICATIONS: Ecotrin, Pletal, Colace, Synthroid, Crestor and Flomax. LABORATORY DATA: White blood cells 4.1, hemoglobin 14.1, hematocrit 42.3, platelets 108. Sodium 143, potassium 3.7, BUN 8, creatinine 0.8, glucose 124. ASSESSMENT AND PLAN: The patient is a 52-year-old male with leukopenia, thrombocytopenia, hyperglycemia, hypertension, obstructive sleep apnea syndrome, status post cerebrovascular accident with aphasia. Came into the emergency room with worsening slurred speech and worsening gait. The patient is currently managed for acute encephalopathy. The patient is not using the continuous positive airway pressure or bilevel positive airway pressure for obstructive sleep apnea. He refused getting physical therapy. need good physical therapy. We will follow up. Suzanne Jones MD [facility]TD[facility]
[2018-06-23 08:33] VITALS: BP 130/81; PULSE 79; TEMP 97.7; O2SAT 97
[2018-06-23] MEDS: Multiple Vitamins Tab PO SCH (09:07)
[2018-06-23] MEDS: Cilostazol 100 mg Tab UD PO SCH (09:07)
--- NOTE | 2018-06-23 13:01 | CP.PCM.PN ---
Subjective - Date & Time of Evaluation Date of Evaluation: 06/23/18 Time of Evaluation: 13:01 - Subjective Subjective: Pulmonary follow up, Covering Dr Grover The Patient was seen and examined at the bedside, Medical records reviewed, and management issues were discussed and formulated with the house staff. Events reviewed Patient is 62 with past years old male medical history hypertension, status post CVA with aphasia Who presented to emergency room with worsening slurred speech and worsening gait Patient currently managed for Acute encephalopathy Pulmonary consult requested for management of obstructive sleep apnea Patient is not using CPAP or BIPAP at home patient currently Awake, confused and intermittently follow simple commands Laying in comfortable in bed not in any apparent distress breathing is unlabored Objective - Vital Signs/Intake and Output Vital Signs (last 24 hours): Temp Pulse Resp BP Pulse Ox 97.7 F 79 20 130/81 97 06/23/18 07:00 06/23/18 07:00 06/23/18 07:00 06/23/18 07:00 06/23/18 07:00 Intake and Output: 06/23/18 06/23/18 06:59 18:59 Intake Total 650 Output Total 200 Balance 450 - Medications Medications: Current Medications Aspirin (Ecotrin) 81 mg PO DAILY [facility] Last Admin: 06/23/18 09:07 Dose: 81 mg Cilostazol (Pletal) 100 mg PO BID [facility] Last Admin: 06/23/18 09:07 Dose: 100 mg Docusate Sodium (Colace) 100 mg PO BID [facility] Last Admin: 06/23/18 09:07 Dose: 100 mg Levothyroxine Sodium (Synthroid) 75 mcg PO DAILY@0630 [facility] Last Admin: 06/23/18 06:19 Dose: 75 mcg Multivitamins (Hexavitamin) 1 tab PO DAILY [facility] Last Admin: 06/23/18 09:07 Dose: 1 tab Rosuvastatin Calcium (Crestor) 20 mg PO HS [facility] Last Admin: 06/22/18 22:37 Dose: 20 mg Tamsulosin HCl (Flomax) 0.4 mg PO DAILY [facility] Last Admin: 06/23/18 09:07 Dose: 0.4 mg - Labs Labs: 06/23/18 06:48 06/23/18 06:48 PT 13.1 SECONDS (9.7-12.2) H 06/17/18 13:08 INR 1.2 06/17/18 13:08 APTT 30 SECONDS (21-34) 06/17/18 13:08 - Constitutional Appears: Well, Non-toxic - Head Exam Head Exam: ATRAUMATIC, NORMAL INSPECTION, NORMOCEPHALIC - Eye Exam Eye Exam: EOMI, Normal appearance Pupil Exam: NORMAL ACCOMODATION - ENT Exam ENT Exam: Mucous Membranes Moist - Neck Exam Neck Exam: Full ROM - Respiratory Exam Respiratory Exam: Clear to Ausculation Bilateral, NORMAL BREATHING PATTERN - GI/Abdominal Exam GI & Abdominal Exam: Soft, Normal Bowel Sounds. absent: Tenderness - Rectal Exam Rectal Exam: NORMAL INSPECTION - Neurological Exam Neurological Exam: Alert, Altered, Awake - Psychiatric Exam Psychiatric exam: Anxious Assessment and Plan (1) BRYON (obstructive sleep apnea) Status: Acute (2) Acute encephalopathy Status: Acute (3) DVT prophylaxis Status: Acute - Assessment and Plan (Free Text) Assessment: Shedule for sleep study outpatient - Positional therapy, Avoidance of supine sleep may be helpful - Patient refuses to use CPAP device. - Encourage CPAP use at night - PRN albuterol. - A mandibular advancement splint (Dental Clinic referral), Provent therapy, or referral to an ENT surgeon for modification of the airway should be considered to reduce daytime somnolence and the potential contribution of BRYON on existing illnesses if the patient prefers an alternative therapy to CPAP or if the trial of CPAP is unsuccessful. HOB maintained at 30 degrees. Aggressive pulmonary toilet Maintain aspiration precaution
--- NOTE | 2018-06-24 05:50 | DS ---
The patient was seen and examined at the bedside on 06/23/2018. CHIEF COMPLAINT: Slurring of speech, worsening gait. HISTORY OF PRESENT ILLNESS: Mr. Bib Joseph is a 62-year-old male with a past medical history of multiple medical problems, history of CVA, at least 9 to 10 times as per . The patient has symptoms like stroke, slurring of speech, right lower extremity weakness with abnormal gait and left facial droop. The patient was then informed by the neurologist to bring him to the emergency room. She brought him to [facility] emergency room. We did CAT scan of the head and head and neck CTA. Dr. Thierry Bunn did a telehealth consultation on the day of admission, later on seen by the manufacturing tech multiple times. Physical therapy given. The patient improved. Physical Therapy and Neurology is approving subacute rehab. first calender worker, outsole caser, , and myself are working on that. Today, the patient is going to subacute rehab. Will continue treatment there. Multiple times I have had discussion with his . PAST MEDICAL HISTORY: Depression, hypertension, hypercholesterolemia, hypothyroidism, sleep apnea, history of stroke multiple times, aphasia. FAMILY HISTORY: Father and mother noncontributory. HABITS: History of former smoker. No smoking, no drugs, no ethanol. MEDICATIONS: Reviewed by me. ALLERGIES: THE PATIENT IS NOT ALLERGIC WITH ANY MEDICATIONS. REVIEW OF SYSTEMS: The patient was seen and examined at the bedside. Looking comfortable. No fever. No hematemesis, no hematochezia. No headache or dizziness. No chest pain or palpitations. LABORATORY DATA: White blood cells 4.8, hemoglobin 13.7, hematocrit 40.8, platelets 106. Sodium 138, potassium 3.8, BUN 11, creatinine 0.7, hemoglobin A1c is 5. ASSESSMENT AND PLAN: Mr. Bib Joseph is a 62-year-old male with leukopenia, hyperglycemia, history of stroke multiple times, history of hypertension and obstructive sleep apnea syndrome, who came with slurring of speech and extremity weakness, improved. The patient is refusing continuous positive airway pressure, bilevel positive airway pressure for sleep apnea, getting physical therapy. Planning transfer the patient to subacute rehab. Had conversation with the . Some doctor will follow up there. Suzanne Jones MD [facility] # [id number]
--- NOTE | 2018-06-29 08:54 | PQF ---
PROVIDER RESPONSE TEXT: Provider was unable to determine a response for this query. REVIEWER QUERY TEXT: Clarification of Clinical Diagnostic Findings Please clarify documentation or clinical relevance for the clinical / diagnostic findings or whether those are insignificant or unable to be further specified. CVA===R/I OR R/O CADASIL AMYLOIDOSIS The patient's Clinical Indicators include: ENCEPHALOPATHY SLURRED SPEECH RLE WEAKENESS NEUROLOGICAL DEFICIT PLEASE CLARIFY AND DOCUMENT THE FINAL DIADNOSI===CADASIL =AMYLOIDOSIS WAS A CVA R/I OR R/O Query created by: Libra Kelsey on 06/26/2018 3:34 PM Electronically signed by: Suzanne Jones MD 06/29/2018 8:51 AM
== END 2018-06-23 15:10 | DRG 546 ==
LOC: C.ER 12:55 → C.9E 14:05 → C.6T 14:31 → OBSVTOIN 06-20 12:42
PROVIDERS: ADMIT Internal Medicine; ATTEND Internal Medicine
DX: E85.4 Organ-limited amyloidosis (principal); G93.40 Encephalopathy, unspecified; I68.0 Cerebral amyloid angiopathy; R29.702 NIHSS score 2; I10 Essential (primary) hypertension; G47.33 Obstructive sleep apnea (adult) (pediatric); N40.0 Benign prostatic hyperplasia without lower urinary tract symptoms; R29.810 Facial weakness; Z74.01 Bed confinement status; Z87.891 Personal history of nicotine dependence; Z91.19 Patient's noncompliance with other medical treatment and regimen; D69.6 Thrombocytopenia, unspecified; D72.819 Decreased white blood cell count, unspecified; E03.9 Hypothyroidism, unspecified; I73.9 Peripheral vascular disease, unspecified